=== PATIENT | female | born 1930 | race Caucasian/White ===

== ENCOUNTER 2018-07-26 08:40 | Inpatient (IN) ==
[2018-07-26] MEDS ORDERED: MoRPHine SULFATE 4 MG/ML 1 ML CARP\\VIAL IV STA (09:56)
[2018-07-26] MEDS ORDERED: ONDANSETRON INJ 2 MG/ML 2 ML VIAL IV STA (09:56)
[2018-07-26 10:13] LABS: Basophils # (auto) 0.02 K/uL (0-0.2); Basophils % (auto) 0.2 %; Eosinophils # (auto) 0.06 K/uL (0-0.5); Eosinophils % (auto) 0.7 %; Hematocrit (blood only) 41.7 % (37-47); Immature Granulocytes # (auto) 0.03 K/uL (0.00-0.02); Immature Granulocytes % (auto) 0.3 %; Lymphocytes # (auto) 1.08 K/uL (1.2-3.4); Lymphocytes % (auto) 11.9 %; Mean Corpuscular Hgb Conc 33.6 g/dL (32-36); Mean Corpuscular Volume 93.5 fL (80-100); Mean Platelet Volume 10.3 fL (7.4-10.4); Monocytes # (auto) 0.74 K/uL (0.11-0.59); Monocytes % (auto) 8.1 %; Neutrophils # (auto) 7.18 K/uL (1.4-6.5); Neutrophils % (auto) 78.8 %; Platelet Count 153 K/uL (130-400); RDW Coefficient of Variation 17.4 % (11.5-14.5); RDW Standard Deviation 58.7 fL (36.4-46.3); Red Blood Count 4.46 M/uL (4.2-5.4); White Blood Count 9.11 K/uL (4.8-10.8)
[2018-07-26 10:17] LABS: Appearance Urine Clear (Clear); Bacteria Urine Automated Negative (Negative); Bilirubin Urine Negative (Negative); Blood Urine Negative (Negative); Color Urine Yellow; Glucose Urine UA Negative (Negative); Ketones Urine Negative (Negative); Leukocyte Esterase Urine Negative (Negative); Nitrite Urine Negative (Negative); Protein Urine Trace (Negative); RBC Urine Automated 0-4 /hpf (0-4); Specific Gravity Urine 1.015 (1.000-1.030); Urobilinogen Urine Negative (Negative); WBC Urine Automated 0 /hpf (0-5)
[2018-07-26 10:29] LABS: Albumin Level 3.3 gm/dl (3.4-5.0); BUN Creatinine Ratio 19.1 (10-20); Calcium 8.9 mg/dl (8.5-10.1); Creatinine Clr Calc Pharmacy 25.7 ml/min; Est GFR (African American) 38.1; Est GFR (Non-African American) 32.9; Potassium 4.6 mmol/L (3.5-5.1)
[2018-07-26 10:32] LABS: Prothrombin Time 35.8 Seconds (9.0-12.0)
[2018-07-26 10:45] LABS: Albumin Globulin Ratio 0.9 (0.9-2); Bilirubin,Total 1.5 mg/dl (0.2-1); Globulin 3.8 gm/dl (2.5-4.0); Total Protein 7.1 gm/dl (6.4-8.2); Troponin I 0.082 ng/ml (0-0.045)
[2018-07-26] MEDS ORDERED: DiphenhydrAMINE HCL 50 MG/ML VIAL IV STA (10:58)
[2018-07-26] MEDS ORDERED: IOVERSOL 100ml IV PRN (11:14)
--- NOTE | 2018-07-26 11:22 | CT Scan Report ---
HEAD CT NONCONTRAST CT DOSE: HISTORY: fall TECHNIQUE: Multiaxial CT images of the head were performed without the use of intravenous contrast. A utomated exposure control was utilized for this study. A dose lowering technique was utilized adheri ng to the principles of ALARA. Comparison: None. Findings: The paranasal sinuses and mastoid air cells are clear. The calvarium and skull base are int act. There is no mass, hematoma, midline shift, acute infarct. White matter hypodensity is nonspecifi c but suggestive of microvascular ischemic change. The ventricles and sulci demonstrate mild age-rela elijah involutional changes. Mild posterior scalp swelling with a few skin jeimy. Impression: No acute intracranial abnormality. Atrophy and microvascular ischemic changes. Posterior scalp injury . Electronically signed by: Javier Vail M.D. 07/26/2018 11:21 AM
--- NOTE | 2018-07-26 11:32 | CT Scan Report ---
THORACIC SPINE CT CLINICAL HISTORY: Mid back pain following fall. COMPARISON STUDY: No previous studies for comparison. TECHNIQUE: Axial images of the thoracic spine were obtained. Sagittal and coronal reconstructions wer e viewed. Automated exposure control was utilized for the study. A dose lowering technique was utili zed adhering to the principles of ALARA. FINDINGS: Please note that the chest CT will be reported separately. Note is made of minimal S-shaped curvature of the thoracic spine. No acute thoracic spine fracture is noted. There is severe multilev el disc space narrowing with moderate osteophytosis. There is moderate multilevel facet arthrosis. Th e central canal and neural foramen are suboptimally assessed by CT. Paravertebral soft tissues are un remarkable. Small bilateral pleural effusions and mild interlobular septal thickening are noted. IMPRESSION: 1. No acute thoracic spine fracture or subluxation. 2. Severe multilevel disc space narrowing and moderate osteophytosis and facet arthrosis within the t horacic spine. 3. Small bilateral pleural effusions. Mild interstitial pulmonary edema. Electronically signed by: Wayne Burgess M.D. 07/26/2018 11:30 AM
--- NOTE | 2018-07-26 11:41 | CT Scan Report ---
LUMBAR SPINE CT CT DOSE: HISTORY: lower back pain TECHNIQUE: Multiaxial CT images of the lumbar spine were performed and reformatted in the sagittal an d coronal plane without the use of contrast. A dose lowering technique was utilized adhering to the principles of ALARA. COMPARISON: None. FINDINGS: No fractures. No subluxation. Paraspinal soft tissues are unremarkable. Severe disc space n arrowing throughout the lumbar spine. Mild S-shaped scoliosis. IMPRESSION: No fractures within the lumbar spine. Electronically signed by: Javier Vail M.D. 07/26/2018 11:40 AM
--- NOTE | 2018-07-26 11:55 | CT Scan Report ---
CT SCAN OF THE CHEST WITH IV CONTRAST CLINICAL HISTORY: Fall. COMPARISON STUDY: No priors. TECHNIQUE: Following the IV administration of 93 cc of Optiray 320, CT scan of the thorax was perform ed from the thoracic inlet to the upper abdomen. Images are reviewed in the axial, sagittal, and swati nal planes. IV contrast was administered without complication. A dose lowering technique was utilize d adhering to the principles of ALARA. FINDINGS: Thyroid: Enlarged for age and heterogeneous in attenuation. Thoracic aorta: There is advanced atherosclerotic calcification of the thoracic aorta. There is mild ectasia of the ascending thoracic aorta which measures up to 3.7 cm in diameter. The remainder of the thoracic aorta is normal in caliber and the arch demonstrates standard 3-vessel anatomy. The thoraci c aorta is not well opacified. Pulmonary vasculature: The pulmonary trunk is normal in caliber. There are no filling defects identif ied in the central pulmonary vessels to indicate pulmonary embolus. Note that this examination was no t protocoled for evaluation of the pulmonary arteries. Heart: A 2-lead cardiac pacemaker is present in the left chest wall. The heart is enlarged and withou t pericardial effusion. The coronary arteries are densely calcified. Lungs and pleural spaces: There are small pleural effusions with bibasilar atelectasis. No pneumothor ax is seen. Secretions are noted in the right mainstem bronchus. The trachea is clear. Mediastinum: There is no mediastinal hematoma or lymphadenopathy. Michelle: Clear. Axillae: There is no axillary lymphadenopathy. Upper abdomen: There is a small volume of perihepatic and perisplenic ascites. Partially visualized u pper abdominal viscera is otherwise grossly unremarkable. See report of abdominal CT performed concur rently for detailed intra-abdominal findings. Skeletal structures: The skeletal structures are osteopenic. The bony thorax appears intact. Degenera tive changes noted throughout the thoracic spine and in the shoulders. No lytic or blastic bony lesio ns are seen. IMPRESSION: 1. There is no acute posttraumatic intrathoracic abnormality. 2. Cardiomegaly and small pleural effusions. 3. No pneumothorax is seen. 4. The bony thorax appears intact. 5. A small volume of upper abdominal ascites is noted. 6. Additional findings as above. Electronically signed by: Thiago Gustafson M.D. 07/26/2018 11:54 AM
--- NOTE | 2018-07-26 11:56 | CT Scan Report ---
ABDOMEN AND PELVIS CT WITH IV CONTRAST CT DOSE: HISTORY: severe L flank chest and abd pain TECHNIQUE: Multiaxial CT images of the abdomen and pelvis were performed following the use of intrave nous contrast. A dose lowering technique was utilized adhering to the principles of ALARA. COMPARISON STUDY: None. FINDINGS: Small bilateral pleural effusions. The heart is mildly enlarged. Pacemaker wire is noted. N o hepatic or splenic masses. The adrenal glands are unremarkable. Bilateral cortical renal thinning. Small bilateral renal hypodense lesions. These favor cysts. No hydronephrosis. There is a 6.2 x 5.5 c m heterogeneous mass which appears to be located pancreatic head. The main pancreatic duct proximal t o this lesion is distended up to 1.5 cm. There is diffuse atrophy of the pancreatic body and tail. Th ere are few mildly enlarged peripancreatic lymph nodes measuring up to 1.5 cm consistent with metasta tic disease. There is fluid surrounding the gallbladder. The gallbladder is therefore not well visual ized. This pancreatic mass compresses the adjacent duodenum. However, no evidence for gastric obstruc tion. Mild body wall edema. The bladder, uterus, and bilateral adnexa are unremarkable. Mild presacra l edema. Trace pelvic free fluid. There is also body wall edema. No fractures within the visualized o sseous structures. No bowel wall thickening. Moderate hyperdense stool within the colon suggesting pr ior oral contrast. IMPRESSION: 1. No acute traumatic process within the abdomen or pelvis. 2. A 6.2 x 5.5 cm heterogeneous mass within the pancreatic head with adjacent peripancreatic lymphade nopathy. This likely represents a pancreatic adenocarcinoma. 3. There is fluid surrounding the gallbladder. Therefore, the gallbladder is not well visualized. 4. Body wall edema. 5. Trace pelvic free fluid. 6. Small bilateral pleural effusions. Electronically signed by: Javier Vail M.D. 07/26/2018 11:54 AM
[2018-07-26 12:21] LABS: INR 3.8 (0.9-1.1)
--- NOTE | 2018-07-26 14:12 | Gastrointestinal Consultation ---
Date of Consultation July 26, 2018 Assessment & Plan (1) Pancreatic mass: 87 year old female with newly discovered pancreatic mass w/ normal LFTs (lipase yet to be obtained). After discussion with pt and daughter, they are unsure of how aggressive they wish to be in regards to diagnosis due to age and chromic comorbidities. MRI imaging, EUS w/ FNA was discussed. Possible treatment options if malignancy was confirmed were discussed as well. All questions answered. She is being admitted for pain control, further work up of her presenting concerns. They were asked to discuss with family friends in regards to pursuing EUS w/ FNA. They note they will reach out to primary service once a decision is made. Per patient current wishes, I will not EGD/EUS at this time. Will sign off for now. Thank you for allowing us to participate in the care of this patient. Please call with any acute changes, questions or concerns. Please see addendum below with additional recommendation from my supervising physician. Supervising Physician Co-Signing Physician Notes I have seen and examined the patient with BEV May on 07/26. Her note reflects our findings and plan. History of Present Illness Reason for Consultation: panc mass Requesting Physician: Nidhi Gonzalez Attending Physician: Nidhi Gonzalez History of Present Illness 87 year old female with history of T2DM, hyperthyroidism, dyslipidemia, pylmonary HTN, CHF, mitral valve regurgitation, afib on coumadin, cardiac pacer, recent fall w/ workup concerning for a pancreatic CA who presented through the ED today for back pain. GI asked to evaluate for pancreatic mass. Daughter at bedside. Notes decreased appetite over the past few months. No nausea, vomiting. Has been having a lot of burping/belching. She denies weight loss but daughter notes graduate weight loss. Denies any abd pain. No change in bowel habits specifically no black/bloody stools. CT: No acute traumatic process within the abdomen or pelvis.. A 6.2 x 5.5 cm heterogeneous mass within the pancreatic head with adjacent peripancreatic lymphadenopathy. This likely represents a pancreatic adenocarcinoma.. There is fluid surrounding the gallbladder. Therefore, the gallbladder is not well visualized. Body wall edema.. Trace pelvic free fluid. Small bilateral pleural effusions. Allergies Allergy/AdvReac Type Severity Reaction Status Date / Time morphine Allergy Intermediate Redness of Verified 07/26/18 12:43 Skin Home Medications Home Medications Medication Instructions Recorded Confirmed Type albuterol sulfate [Ventolin HFA] 2 inh INHALATION Q4 PRN 07/26/18 07/26/18 History atorvastatin 10 mg PO DAILY 07/26/18 07/26/18 History carvedilol 3.125 mg PO BID 07/26/18 07/26/18 History cholecalciferol (vitamin D3) 5,000 unit PO DAILY 07/26/18 07/26/18 History [Vitamin D3] furosemide 40 mg PO DAILY 07/26/18 07/26/18 History magnesium hydroxide [Milk of 30 ml PO DAILY PRN 07/26/18 07/26/18 History Magnesia] magnesium oxide 400 mg PO DAILY 07/26/18 07/26/18 History nitroglycerin [Nitrostat] 0.4 mg SUBLINGUAL UD PRN 07/26/18 07/26/18 History pantoprazole 20 mg PO DAILY 07/26/18 07/26/18 History propylthiouracil 50 mg PO DAILY 07/26/18 07/26/18 History warfarin 4 mg PO DAILY 07/26/18 07/26/18 History acetaminophen [Tylenol Extra 1,000 mg PO Q8H #100 tab 07/31/18 Rx Strength] calcium carbonate [Calcium 500] 500 mg PO BID #60 tab 07/31/18 Rx lidocaine 1 patch TRANSDERMAL QAM #3 ea 07/31/18 Rx oxycodone 5 mg PO BID PRN #4 cap 07/31/18 Rx polyethylene glycol 3350 [Miralax] 17 g PO DAILY #30 ea 07/31/18 Rx sennosides-docusate sodium 2 tab PO BID #60 tab 07/31/18 Rx [Senokot-S] tramadol 50 mg PO Q4H PRN #8 tab 07/31/18 Rx Patient History Medical History GERD (gastroesophageal reflux disease) (Chronic) Tachy-miranda syndrome (Chronic) Nonischemic cardiomyopathy (Chronic) Pulmonary hypertension (Chronic) Dyslipidemia (Chronic) Hyperthyroidism (Chronic) DM type 2 (diabetes mellitus, type 2) (Chronic) A-fib (Chronic) Surgical History H/O inguinal hernia repair (Chronic) History of cataract surgery (Chronic) History of carpal tunnel surgery of right wrist (Chronic) History of carpal tunnel surgery of left wrist (Chronic) History of permanent cardiac pacemaker placement (Chronic) Family History Father Stroke Brother Stroke Social History Preferred Language: [place] Communication Ability: Effective Branch Mechanic Required: No Beliefs That Will Affect Care: None Current Living Situation: Alone Other Information That Helps Us Care for You: No Feels Safe at Home: Yes Safety Concerns: Feels Safe At This Time Smoking Status: Never smoker Do You Dip or Chew Tobacco: No Hx Alcohol Use: No Hx Substance Use: No Review of Systems Constitutional: + fatigue, + weakness, + anorexia and + weight loss; no fever and no body aches Respiratory: no cough, no dyspnea and no wheezing Cardiovascular: no chest pain, no radiating jaw, neck or arm pain and no dyspnea on exertion Gastrointestinal: + belching and + early satiety; no abdominal pain, no heartburn, no nausea, no vomiting, no coffee ground emesis, no hematemesis, no pain with swallowing, no dysphagia, no cramping, no change in bowel habits, no change in stools, no diarrhea/loose stools, no blood in stools and no melena Physical Exam Constitutional: well nourished; no acute distress and not ill appearing Eyes: Right pupil is chronically dilated per daughter Respiratory: normal respiratory effort; no respiratory distress Cardiovascular: Rate/Rhythm: regular rate and regular rhythm Gastrointestinal (Abdomen): Percussion/Palpation: abdomen soft; abdomen nontender, no guarding, abdomen not rigid, no hepatomegaly and no ascites Results & Data Vital Signs (Past 12 Hours) Vital Signs Temp Pulse Pulse Resp BP BP Pulse Ox 07/26/18 12:21 66 18 119/80 100 07/26/18 11:38 88 L 07/26/18 10:35 61 18 130/71 95 07/26/18 08:35 36.4 C L 64 18 122/76 96 Laboratory Results 07/26/18 07/26/18 07/26/18 Range/Units 10:03 10:03 10:03 WBC (4.8-10.8) K/uL RBC (4.2-5.4) M/uL Hgb (12.0-16.0) g/dL Hct (37-47) % MCV (80-100) fL MCH (25-34) pg MCHC (32-36) g/dL RDW Std Deviation (36.4-46.3) fL RDW Coeff of Melita (11.5-14.5) % Plt Count (130-400) K/uL MPV (7.4-10.4) fL Immature Gran % (Auto) % Neut % (Auto) % Lymph % (Auto) % [place] % (Auto) % Eos % (Auto) % Baso % (Auto) % Immature Gran # (Auto) (0.00-0.02) K/uL Neut # (Auto) (1.4-6.5) K/uL Lymph # (Auto) (1.2-3.4) K/uL [place] # (Auto) (0.11-0.59) K/uL Eos # (Auto) (0-0.5) K/uL Baso # (Auto) (0-0.2) K/uL PT (9.0-12.0) Seconds INR (0.9-1.1) Sodium 130 L (136-145) mmol/L Potassium 4.6 (3.5-5.1) mmol/L Chloride 96 L (98-107) mmol/L Carbon Dioxide 29 (21-32) mmol/L Anion Gap 5.0 (3-11) BUN 27 H (7-18) mg/dl Creatinine 1.42 H (0.6-1.2) mg/dl Est Cr Clr Drug Dosing 25.7 ml/min Est GFR ( Amer) 38.1 Est GFR (Non-Af Amer) 32.9 BUN/Creatinine Ratio 19.1 (10-20) Glucose 141 H (70-99) mg/dl Calcium 8.9 (8.5-10.1) mg/dl Total Bilirubin 1.5 H (0.2-1) mg/dl AST 29 (15-37) U/L ALT 19 (12-78) U/L Alkaline Phosphatase 110 (45-117) U/L Total Creatine Kinase 111 (26-192) U/L Troponin I 0.082 H* (0-0.045) ng/ml Total Protein 7.1 (6.4-8.2) gm/dl Albumin 3.3 L (3.4-5.0) gm/dl Globulin 3.8 (2.5-4.0) gm/dl Albumin/Globulin Ratio 0.9 (0.9-2) Urine Color Yellow Urine Appearance Clear (Clear) Urine pH 6.0 (4.5-7.5) Ur Specific [place] 1.015 (1.000-1.030) Urine Protein Trace H (Negative) Urine Glucose (UA) Negative (Negative) Urine Ketones Negative (Negative) Urine Blood Negative (Negative) Urine Nitrite Negative (Negative) Urine Bilirubin Negative (Negative) Urine Urobilinogen Negative (Negative) Ur Leukocyte Esterase Negative (Negative) Urine WBC (Auto) 0 (0-5) /hpf Urine RBC (Auto) 0-4 (0-4) /hpf U Hyaline Cast (Auto) 1-5 (0-5) /lpf U Epithel Cells (Auto) 10-20 H (0-5) /lpf Urine Bacteria (Auto) Negative (Negative) 07/26/18 07/26/18 Range/Units 10:03 10:03 WBC 9.11 (4.8-10.8) K/uL RBC 4.46 (4.2-5.4) M/uL Hgb 14.0 (12.0-16.0) g/dL Hct 41.7 (37-47) % MCV 93.5 (80-100) fL MCH 31.4 (25-34) pg MCHC 33.6 (32-36) g/dL RDW Std Deviation 58.7 H (36.4-46.3) fL RDW Coeff of Melita 17.4 H (11.5-14.5) % Plt Count 153 (130-400) K/uL MPV 10.3 (7.4-10.4) fL Immature Gran % (Auto) 0.3 % Neut % (Auto) 78.8 % Lymph % (Auto) 11.9 % [place] % (Auto) 8.1 % Eos % (Auto) 0.7 % Baso % (Auto) 0.2 % Immature Gran # (Auto) 0.03 H (0.00-0.02) K/uL Neut # (Auto) 7.18 H (1.4-6.5) K/uL Lymph # (Auto) 1.08 L (1.2-3.4) K/uL [place] # (Auto) 0.74 H (0.11-0.59) K/uL Eos # (Auto) 0.06 (0-0.5) K/uL Baso # (Auto) 0.02 (0-0.2) K/uL PT 35.8 H (9.0-12.0) Seconds INR 3.8 H (0.9-1.1) Sodium (136-145) mmol/L Potassium (3.5-5.1) mmol/L Chloride (98-107) mmol/L Carbon Dioxide (21-32) mmol/L Anion Gap (3-11) BUN (7-18) mg/dl Creatinine (0.6-1.2) mg/dl Est Cr Clr Drug Dosing ml/min Est GFR ( Amer) Est GFR (Non-Af Amer) BUN/Creatinine Ratio (10-20) Glucose (70-99) mg/dl Calcium (8.5-10.1) mg/dl Total Bilirubin (0.2-1) mg/dl AST (15-37) U/L ALT (12-78) U/L Alkaline Phosphatase (45-117) U/L Total Creatine Kinase (26-192) U/L Troponin I (0-0.045) ng/ml Total Protein (6.4-8.2) gm/dl Albumin (3.4-5.0) gm/dl Globulin (2.5-4.0) gm/dl Albumin/Globulin Ratio (0.9-2) Urine Color Urine Appearance (Clear) Urine pH (4.5-7.5) Ur Specific [place] (1.000-1.030) Urine Protein (Negative) Urine Glucose (UA) (Negative) Urine Ketones (Negative) Urine Blood (Negative) Urine Nitrite (Negative) Urine Bilirubin (Negative) Urine Urobilinogen (Negative) Ur Leukocyte Esterase (Negative) Urine WBC (Auto) (0-5) /hpf Urine RBC (Auto) (0-4) /hpf U Hyaline Cast (Auto) (0-5) /lpf U Epithel Cells (Auto) (0-5) /lpf Urine Bacteria (Auto) (Negative)
--- NOTE | 2018-07-26 14:23 | Emergency Department Note ---
Entered by Ambar Weeks acting as a scribe for Pino Monreal DO History of Present Illness General Chief complaint: Fall Time Seen by Provider: 07/26/18 08:42 Source: patient and family Mode of arrival: EMS Limitations: no limitations History of Present Illness Provider complaint: fall Onset (ago): hour(s) 3 Location: back Pain Consistency: + other (episode) Quality: + other (fall) Associated symptoms: + denies other symptoms; no syncope The patient is an 87 year old female who presents to the ER via EMS from home following a fall that occurred last night. The patient reports that she was standing and all of a sudden was on the floor. She denies losing consciousness or inuring her head during this episode. She explains she fell on her left side and that she does have back pain. The daughter at bedside states that the patient is on Coumadin for her history of a-fib. The patient denies any numbness or weakness in her arms or legs. Per daughter, the patient last had a fall 6 days ago. Home Medications Home Medications Medication Instructions Recorded Confirmed Type acetaminophen [Tylenol] 650 mg PO DAILY PRN 07/26/18 07/26/18 History albuterol sulfate [Ventolin HFA] 2 inh INHALATION Q4 PRN 07/26/18 07/26/18 History alendronate 70 mg PO WK 07/26/18 07/26/18 History atorvastatin 10 mg PO DAILY 07/26/18 07/26/18 History carvedilol 3.125 mg PO BID 07/26/18 07/26/18 History cholecalciferol (vitamin D3) 5,000 unit PO DAILY 07/26/18 07/26/18 History [Vitamin D3] furosemide 40 mg PO DAILY 07/26/18 07/26/18 History hydrocodone-acetaminophen 0.5 tab PO Q6H PRN 07/26/18 07/26/18 History magnesium hydroxide [Milk of 30 ml PO DAILY PRN 07/26/18 07/26/18 History Magnesia] magnesium oxide 400 mg PO DAILY 07/26/18 07/26/18 History nitroglycerin [Nitrostat] 0.4 mg SUBLINGUAL UD PRN 07/26/18 07/26/18 History pantoprazole 20 mg PO DAILY 07/26/18 07/26/18 History propylthiouracil 50 mg PO DAILY 07/26/18 07/26/18 History warfarin 4 mg PO DAILY 07/26/18 07/26/18 History Allergies Allergy/AdvReac Type Severity Reaction Status Date / Time morphine Allergy Intermediate Redness of Verified 07/26/18 12:43 Skin Past Med/Surg History Medical History A-fib (Chronic) Surgical History History of permanent cardiac pacemaker placement Social History Preferred Language: Slovenian Current Living Situation: Alone Smoking Status: Never smoker Review of Systems See HPI for pertinent positives & negatives. and A total of 10 systems reviewed and were otherwise negative Physical Exam Vital Signs Vital Signs - 24 hr 07/26/18 08:35 07/26/18 10:35 07/26/18 11:38 Temperature 36.4 C L Temperature Source Axillary Sepsis Recent Fever Within 48 Hours No Sepsis Action Taken by Nursing No Action Required Pulse Rate 64 Pulse Rate [Apical] 61 Respiratory Rate 18 18 Respiratory Effort / Characteristics Non-Labored Spontaneous Non-Labored Spontaneous Respiratory Depth Normal Normal Respiratory Pattern Regular Regular Blood Pressure 122/76 Blood Pressure [Right Arm] 130/71 Blood Pressure Mean 91 Blood Pressure Mean [Right Arm] 90 Blood Pressure Position Sitting Blood Pressure Position [Right Arm] Lying Pulse Oximetry 96 95 88 L Oxygen Delivery Method Room Air Room Air Room Air Nasal Cannula Oxygen Flow Rate 0 07/26/18 12:21 Temperature Temperature Source Sepsis Recent Fever Within 48 Hours Sepsis Action Taken by Nursing Pulse Rate Pulse Rate [Apical] 66 Respiratory Rate 18 Respiratory Effort / Characteristics Non-Labored Spontaneous Respiratory Depth Normal Respiratory Pattern Regular Blood Pressure Blood Pressure [Right Arm] 119/80 Blood Pressure Mean Blood Pressure Mean [Right Arm] 93 Blood Pressure Position Blood Pressure Position [Right Arm] Lying Pulse Oximetry 100 Oxygen Delivery Method Nasal Cannula Oxygen Flow Rate 2 GENERAL: alert, well appearing, well nourished, no distress, non-toxic HEAD: Stables in posterior occiput. Normal cephalic, atraumatic. EYE EXAM: normal conjunctiva, PERRL and EOM's grossly intact OROPHARYNX: no exudate, no erythema, lips, buccal mucosa, and tongue normal and mucous membranes are moist EARS: TMs clear b/l NECK: supple, no nuchal rigidity, no adenopathy, non-tender CHEST: stable to compression anteriorly and posteriorly LUNGS: clear to auscultation. Normal chest wall mechanics HEART: no murmurs, S1 normal and S2 normal ABDOMEN: abdomen soft, non-tender, normo-active bowel sounds, no masses, no rebound or guarding. PELVIS: stable to compression anteriorly and posteriorly BACK: Back is symmetrical on inspection and there is no deformity. Tenderness throughout upper lumbar midline and paraspinal tracking through left flank with bruising. UPPER EXTREMITIES: full active and passive range of motion of all joints without tenderness to palpation LOWER EXTREMITIES: full active and passive range of motion of all joints without tenderness to palpation NEURO EXAM: Normal sensorium, cranial nerves II-XII grossly intact, normal speech, no gross weakness of arms, no gross weakness of legs. GCS: 15. Course ED COURSE: Vital signs were reviewed and are within normal limits. The patients medical record was reviewed The above diagnostic studies were performed and reviewed. ED treatments and interventions as stated above. 0850: The patient was evaluated in room A3. A complete history and physical examination was performed. 1212: I reviewed the patient's case with Dr. [facility] Hospitalist. He will evaluate the patient for further management. 1220: Upon reevaluation, the patient is [].I discussed my findings with the [patient] and [] understands and agrees with the treatment plan. Based on the patients age, coexisting illnesses, exam and lab findings the decision to treat as an [inpatient][outpatient] was made. The patient remained stable while under my care. [The patient appeared well at the time of discharge.] [The patient will be evaluated for further management.] Administered Medications Ioversol (Optiray 320 100ml) 93 ml IV ONCE PRN PRN Reason: Interaction Checking Stop: 07/30/18 11:13 Last Admin: 07/26/18 11:15 Dose: 93 ml Documented by: [id number] Discontinued Medications Diphenhydramine HCl (Benadryl) 25 mg IV NOW STA Stop: 07/26/18 10:59 Last Admin: 07/26/18 11:30 Dose: 25 mg Documented by: [id number] Morphine Sulfate (Morphine Sulfate) 3 mg IV NOW STA Stop: 07/26/18 09:57 Last Admin: 07/26/18 10:34 Dose: 3 mg Documented by: [id number] Ondansetron HCl (Zofran) 4 mg IV NOW STA Stop: 07/26/18 09:57 Last Admin: 07/26/18 10:34 Dose: 4 mg Documented by: [id number] Medical Decision Making Differential Diagnosis Differential diagnoses include major intracranial, cervical, spinal, thoracic, abdominal, pelvic and neurologic injury. Fracture, contusion, sprain, strain, laceration, abrasions included as well. Home Medications Current Medication List: was personally reviewed by me Laboratory Data Attestation: I reviewed the patient's lab results. Result diagrams: 07/26/18 10:03 07/26/18 10:03 Lab Results 07/26/18 07/26/18 07/26/18 Range/Units 10:03 10:03 10:03 WBC 9.11 (4.8-10.8) K/uL RBC 4.46 (4.2-5.4) M/uL Hgb 14.0 (12.0-16.0) g/dL Hct 41.7 (37-47) % MCV 93.5 (80-100) fL MCH 31.4 (25-34) pg MCHC 33.6 (32-36) g/dL RDW Std Deviation 58.7 H (36.4-46.3) fL RDW Coeff of Melita 17.4 H (11.5-14.5) % Plt Count 153 (130-400) K/uL MPV 10.3 (7.4-10.4) fL Immature Gran % (Auto) 0.3 % Neut % (Auto) 78.8 % Lymph % (Auto) 11.9 % Duchesne % (Auto) 8.1 % Eos % (Auto) 0.7 % Baso % (Auto) 0.2 % Immature Gran # (Auto) 0.03 H (0.00-0.02) K/uL Neut # (Auto) 7.18 H (1.4-6.5) K/uL Lymph # (Auto) 1.08 L (1.2-3.4) K/uL Duchesne # (Auto) 0.74 H (0.11-0.59) K/uL Eos # (Auto) 0.06 (0-0.5) K/uL Baso # (Auto) 0.02 (0-0.2) K/uL PT 35.8 H (9.0-12.0) Seconds INR 3.8 H (0.9-1.1) Sodium 130 L (136-145) mmol/L Potassium 4.6 (3.5-5.1) mmol/L Chloride 96 L (98-107) mmol/L Carbon Dioxide 29 (21-32) mmol/L Anion Gap 5.0 (3-11) BUN 27 H (7-18) mg/dl Creatinine 1.42 H (0.6-1.2) mg/dl Est Cr Clr Drug Dosing 25.7 ml/min Est GFR ( Amer) 38.1 Est GFR (Non-Af Amer) 32.9 BUN/Creatinine Ratio 19.1 (10-20) Glucose 141 H (70-99) mg/dl Calcium 8.9 (8.5-10.1) mg/dl Total Bilirubin 1.5 H (0.2-1) mg/dl AST 29 (15-37) U/L ALT 19 (12-78) U/L Alkaline Phosphatase 110 (45-117) U/L Total Creatine Kinase (26-192) U/L Troponin I 0.082 H* (0-0.045) ng/ml Total Protein 7.1 (6.4-8.2) gm/dl Albumin 3.3 L (3.4-5.0) gm/dl Globulin 3.8 (2.5-4.0) gm/dl Albumin/Globulin Ratio 0.9 (0.9-2) Urine Color Urine Appearance (Clear) Urine pH (4.5-7.5) Ur Specific Kathleen (1.000-1.030) Urine Protein (Negative) Urine Glucose (UA) (Negative) Urine Ketones (Negative) Urine Blood (Negative) Urine Nitrite (Negative) Urine Bilirubin (Negative) Urine Urobilinogen (Negative) Ur Leukocyte Esterase (Negative) Urine WBC (Auto) (0-5) /hpf Urine RBC (Auto) (0-4) /hpf U Hyaline Cast (Auto) (0-5) /lpf U Epithel Cells (Auto) (0-5) /lpf Urine Bacteria (Auto) (Negative) 07/26/18 07/26/18 Range/Units 10:03 10:03 WBC (4.8-10.8) K/uL RBC (4.2-5.4) M/uL Hgb (12.0-16.0) g/dL Hct (37-47) % MCV (80-100) fL MCH (25-34) pg MCHC (32-36) g/dL RDW Std Deviation (36.4-46.3) fL RDW Coeff of Melita (11.5-14.5) % Plt Count (130-400) K/uL MPV (7.4-10.4) fL Immature Gran % (Auto) % Neut % (Auto) % Lymph % (Auto) % Duchesne % (Auto) % Eos % (Auto) % Baso % (Auto) % Immature Gran # (Auto) (0.00-0.02) K/uL Neut # (Auto) (1.4-6.5) K/uL Lymph # (Auto) (1.2-3.4) K/uL Duchesne # (Auto) (0.11-0.59) K/uL Eos # (Auto) (0-0.5) K/uL Baso # (Auto) (0-0.2) K/uL PT (9.0-12.0) Seconds INR (0.9-1.1) Sodium (136-145) mmol/L Potassium (3.5-5.1) mmol/L Chloride (98-107) mmol/L Carbon Dioxide (21-32) mmol/L Anion Gap (3-11) BUN (7-18) mg/dl Creatinine (0.6-1.2) mg/dl Est Cr Clr Drug Dosing ml/min Est GFR ( Amer) Est GFR (Non-Af Amer) BUN/Creatinine Ratio (10-20) Glucose (70-99) mg/dl Calcium (8.5-10.1) mg/dl Total Bilirubin (0.2-1) mg/dl AST (15-37) U/L ALT (12-78) U/L Alkaline Phosphatase (45-117) U/L Total Creatine Kinase 111 (26-192) U/L Troponin I (0-0.045) ng/ml Total Protein (6.4-8.2) gm/dl Albumin (3.4-5.0) gm/dl Globulin (2.5-4.0) gm/dl Albumin/Globulin Ratio (0.9-2) Urine Color Yellow Urine Appearance Clear (Clear) Urine pH 6.0 (4.5-7.5) Ur Specific Kathleen 1.015 (1.000-1.030) Urine Protein Trace H (Negative) Urine Glucose (UA) Negative (Negative) Urine Ketones Negative (Negative) Urine Blood Negative (Negative) Urine Nitrite Negative (Negative) Urine Bilirubin Negative (Negative) Urine Urobilinogen Negative (Negative) Ur Leukocyte Esterase Negative (Negative) Urine WBC (Auto) 0 (0-5) /hpf Urine RBC (Auto) 0-4 (0-4) /hpf U Hyaline Cast (Auto) 1-5 (0-5) /lpf U Epithel Cells (Auto) 10-20 H (0-5) /lpf Urine Bacteria (Auto) Negative (Negative) Imaging Data Radiologist's Impression: Radiology results as stated below per my review and the radiologist's interpretation: ABDOMEN AND PELVIS CT WITH IV CONTRAST CT DOSE: HISTORY: severe L flank chest and abd pain TECHNIQUE: Multiaxial CT images of the abdomen and pelvis were performed following the use of intravenous contrast. A dose lowering technique was utilized adhering to the principles of ALARA. COMPARISON STUDY: None. FINDINGS: Small bilateral pleural effusions. The heart is mildly enlarged. Pacemaker wire is noted. No hepatic or splenic masses. The adrenal glands are unremarkable. Bilateral cortical renal thinning. Small bilateral renal hypodense lesions. These favor cysts. No hydronephrosis. There is a 6.2 x 5.5 cm heterogeneous mass which appears to be located pancreatic head. The main pancreatic duct proximal to this lesion is distended up to 1.5 cm. There is diffuse atrophy of the pancreatic body and tail. There are few mildly enlarged peripancreatic lymph nodes measuring up to 1.5 cm consistent with metastatic disease. There is fluid surrounding the gallbladder. The gallbladder is therefore not well visualized. This pancreatic mass compresses the adjacent duodenum. However, no evidence for gastric obstruction. Mild body wall edema. The bladder, uterus, and bilateral adnexa are unremarkable. Mild presacral edema. Trace pelvic free fluid. There is also body wall edema. No fractures within the visualized osseous structures. No bowel wall thickening. Moderate hyperdense stool within the colon suggesting prior oral contrast. IMPRESSION: 1. No acute traumatic process within the abdomen or pelvis. 2. A 6.2 x 5.5 cm heterogeneous mass within the pancreatic head with adjacent peripancreatic lymphadenopathy. This likely represents a pancreatic adenocarcinoma. 3. There is fluid surrounding the gallbladder. Therefore, the gallbladder is not well visualized. 4. Body wall edema. 5. Trace pelvic free fluid. 6. Small bilateral pleural effusions. Electronically signed by: Javier Vail M.D. 07/26/2018 11:[address] SCAN OF THE CHEST WITH IV CONTRAST CLINICAL HISTORY: Fall. COMPARISON STUDY: No priors. TECHNIQUE: Following the IV administration of 93 cc of Optiray 320, CT scan of the thorax was performed from the thoracic inlet to the upper abdomen. Images are reviewed in the axial, sagittal, and coronal planes. IV contrast was administered without complication. A dose lowering technique was utilized adhering to the principles of ALARA. FINDINGS: Thyroid: Enlarged for age and heterogeneous in attenuation. Thoracic aorta: There is advanced atherosclerotic calcification of the thoracic aorta. There is mild ectasia of the ascending thoracic aorta which measures up to 3.7 cm in diameter. The remainder of the thoracic aorta is normal in caliber and the arch demonstrates standard 3-vessel anatomy. The thoracic aorta is not well opacified. Pulmonary vasculature: The pulmonary trunk is normal in caliber. There are no filling defects identified in the central pulmonary vessels to indicate pulmonary embolus. Note that this examination was not protocoled for evaluation of the pulmonary arteries. Heart: A 2-lead cardiac pacemaker is present in the left chest wall. The heart is enlarged and without pericardial effusion. The coronary arteries are densely calcified. Lungs and pleural spaces: There are small pleural effusions with bibasilar atelectasis. No pneumothorax is seen. Secretions are noted in the right mainstem bronchus. The trachea is clear. Mediastinum: There is no mediastinal hematoma or lymphadenopathy. Michelle: Clear. Axillae: There is no axillary lymphadenopathy. Upper abdomen: There is a small volume of perihepatic and perisplenic ascites. Partially visualized upper abdominal viscera is otherwise grossly unremarkable. See report of abdominal CT performed concurrently for detailed intra-abdominal findings. Skeletal structures: The skeletal structures are osteopenic. The bony thorax appears intact. Degenerative changes noted throughout the thoracic spine and in the shoulders. No lytic or blastic bony lesions are seen. IMPRESSION: 1. There is no acute posttraumatic intrathoracic abnormality. 2. Cardiomegaly and small pleural effusions. 3. No pneumothorax is seen. 4. The bony thorax appears intact. 5. A small volume of upper abdominal ascites is noted. 6. Additional findings as above. Electronically signed by: Thiago Gustafson M.D. 07/26/2018 11:[address]AST CT DOSE: HISTORY: fall TECHNIQUE: Multiaxial CT images of the head were performed without the use of intravenous contrast. Automated exposure control was utilized for this study. A dose lowering technique was utilized adhering to the principles of ALARA. Comparison: None. Findings: The paranasal sinuses and mastoid air cells are clear. The calvarium and skull base are intact. There is no mass, hematoma, midline shift, acute infarct. White matter hypodensity is nonspecific but suggestive of microvascular ischemic change. The ventricles and sulci demonstrate mild age-related involutional changes. Mild posterior scalp swelling with a few skin jeimy. Impression: No acute intracranial abnormality. Atrophy and microvascular ischemic changes. Posterior scalp injury. Electronically signed by: Javier Vail M.D. 07/26/2018 11:[address] DOSE: HISTORY: lower back pain TECHNIQUE: Multiaxial CT images of the lumbar spine were performed and reformatted in the sagittal and coronal plane without the use of contrast. A dose lowering technique was utilized adhering to the principles of ALARA. COMPARISON: None. FINDINGS: No fractures. No subluxation. Paraspinal soft tissues are unremarkable. Severe disc space narrowing throughout the lumbar spine. Mild S- shaped scoliosis. IMPRESSION: No fractures within the lumbar spine. Electronically signed by: Javier Vail M.D. 07/26/2018 11:[address] CLINICAL HISTORY: Mid back pain following fall. COMPARISON STUDY: No previous studies for comparison. TECHNIQUE: Axial images of the thoracic spine were obtained. Sagittal and coronal reconstructions were viewed. Automated exposure control was utilized for the study. A dose lowering technique was utilized adhering to the principles of ALARA. FINDINGS: Please note that the chest CT will be reported separately. Note is made of minimal S-shaped curvature of the thoracic spine. No acute thoracic spine fracture is noted. There is severe multilevel disc space narrowing with moderate osteophytosis. There is moderate multilevel facet arthrosis. The central canal and neural foramen are suboptimally assessed by CT. Paravertebral soft tissues are unremarkable. Small bilateral pleural effusions and mild interlobular septal thickening are noted. IMPRESSION: 1. No acute thoracic spine fracture or subluxation. 2. Severe multilevel disc space narrowing and moderate osteophytosis and facet arthrosis within the thoracic spine. 3. Small bilateral pleural effusions. Mild interstitial pulmonary edema. Electronically signed by: Wayne Burgess M.D. 07/26/2018 11:30 AM ECG Data Attestation: I personally reviewed and interpreted this ECG as follows: Indication: other (trauma) Rate (beats per minute): 70 Rhythm: atrial fibrillation Findings: + other (normal axis), + ST depression (Inferior) and + T-wave inversion (Inferior); no PVC Comparison ECG Date: no prior available Blood Pressure Blood Pressure Findings: Normal blood pressure Blood Pressure Disposition: did not require urgent referral MDM Narrative Patient is an 79-year-old female who presents the ER following a mechanical fall. Patient fell around 6 AM is complaining of left back and flank pain. Patient notes that she has fallen multiple times recently. Labs were obtained showed no significant leukocytosis or anemia. INR was supratherapeutic at 3.8. BMP with mild hyponatremia. Creatinine was 1.4. No significant transaminitis. Troponin was elevated at 0.082. Do question if this is demand ischemia versus arrhythmia as she is had no chest pain. UA was unremarkable. CT of the thoracic lumbar head chest was unremarkable. CT abdomen shows a likely pancreatic cancer. Patient was updated in regards to these findings. Discussed with hospitalist. EKG was nondiagnostic. Discussed with the hospitalist for further observation. Impression & Plan Fall, Elevated troponin, Back contusion, Pancreatic cancer Discharge Plan Visit Data Chief Complaint: Fall ED Provider: Pino Monreal Discharge Problem: Fall, Elevated troponin, Back contusion, Pancreatic cancer Patient Disposition: Being Evaluated by Hospitalist Forms Stand Alone Forms: My [facility] Prescriptions Prescriptions: No Action furosemide 40 mg tablet 40 mg PO DAILY RF: 0 acetaminophen [Tylenol] 325 mg Tablet 650 mg PO DAILY PRN (Reason: Pain) RF: 0 propylthiouracil 50 mg tablet 50 mg PO DAILY RF: 0 atorvastatin 10 mg tablet 10 mg PO DAILY RF: 0 hydrocodone-acetaminophen 5-325 mg tablet 0.5 tab PO Q6H PRN (Reason: Pain, Severe) RF: 0 alendronate 70 mg tablet 70 mg PO WK RF: 0 carvedilol 3.125 mg tablet 3.125 mg PO BID RF: 0 warfarin 4 mg tablet 4 mg PO DAILY RF: 0 pantoprazole 20 mg tablet,delayed release (DR/EC) 20 mg PO DAILY RF: 0 magnesium hydroxide [Milk of Magnesia] 400 mg/5 mL Suspension 30 ml PO DAILY PRN (Reason: Constipation) RF: 0 nitroglycerin [Nitrostat] 0.4 mg Tablet, Sublingual 0.4 mg sublingual UD PRN (Reason: Chest Pain) RF: 0 albuterol sulfate [Ventolin HFA] 90 mcg/actuation HFA aerosol inhaler 2 inh inhalation Q4 PRN (Reason: Shortness Of Breath) RF: 0 cholecalciferol (vitamin D3) [Vitamin D3] 5,000 unit Tablet 5,000 unit PO DAILY RF: 0 magnesium oxide 400 mg magnesium Capsule 400 mg PO DAILY RF: 0 Referrals Referrals: Dara Hays DO [Primary Care Provider] - Discharge Problem: Fall Qualifiers: Encounter type: initial encounter Qualified Code(s): W19.XXXA - Unspecified fall, initial encounter Back contusion Qualifiers: Encounter type: initial encounter Laterality: unspecified laterality Qualified Code(s): S20.229A - Contusion of unspecified back wall of thorax, initial encounter Pancreatic cancer Qualifiers: Pancreatic malignancy location: unspecified Qualified Code(s): C25.9 - Malignant neoplasm of pancreas, unspecified The scribe's documentation has been prepared under my direction and personally reviewed by me in its entirety. I confirm that the note above accurately reflects all work, treatment, procedures, and medical decision making performed by me.
--- NOTE | 2018-07-26 14:55 | History & Physical Report ---
Date of Service July 26, 2018 Assessment & Plan (1) Fall: (2) Back pain: -Admit to [facility] with telemetry -Patient presenting from home with back pain after suffering a fall last evening -Fall appears to be mechanical in nature -No acute fractures noted on imaging -Pain control with [id number] Tylenol, PRN oxycodone and IV morphine for breakthrough pain -PT/OT evaluations (3) Pancreatic mass: -CT ABD/pelvis showing a 6.2 x 5.5 cm heterogeneous mass within the pancreatic head, likely representing a pancreatic adenocarcinoma -Had discussion with patient and daughter regarding goals of care and they are unsure how aggressive they would like to be at this point -GI consult for further input, case discussed with BEV Guzmán (4) Elevated troponin: -Mild elevation at 0.082 -no chest pain, EKG demonstrates T wave inversions in the inferior leads, unchanged from outpatient EKGs -Likely secondary to stress of fall/prolonged period of time on the floor -Noted normal CK -Continue to cycle cardiac enzymes, consider resting echo or cardiology evaluation if significant elevation (5) Hypoxia: -Mild hypoxia noted in the ED at 88% on room air, improved with 2 L of oxygen via nasal cannula -Likely secondary to IV pain medications received in the ER -Continue to monitor, wean O2 as able (6) Hyponatremia: -Mild, Na+ 130 -Likely secondary to poor p.o. 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 Recently, patient has had 2 visits to [facility] ED, one for a fall in which she had a laceration to her head which required jeimy and another for right upper quadrant pain. A right upper quadrant ultrasound was obtained that demonstrated a mass. Outpatient CT scan obtained yesterday showed pancreatic mass. Last evening, patient reports she was standing in her kitchen when she suddenly fell. She denies associated lightheadedness, dizziness, loss of consciousness, chest pain, shortness of breath. She reports she turned around and then fell to the floor. Patient reports she was on the floor for about 20 to 25 minutes and she was able to get herself up. She then developed mid back pain and over to the left side. Pain progressively got worse and she called her daughter this morning and came to the ED for further evaluation. Over the past few weeks, patient has had decreased appetite. She has had right upper quadrant pain that has been well controlled with Vicodin. No nausea, vomiting, diarrhea. She has chronic lower extremity edema which is been unchanged for the past few months. No orthopnea. She denies other recent illnesses, fevers, chills. No urinary symptoms. In the ED, no acute musculoskeletal abnormalities were found. CT ABD/pelvis is showing a 6.2 x 5.5 cm heterogeneous mass within the pancreatic head, likely representing a pancreatic adenocarcinoma. Initial troponin is 0.082. EKG demonstrates atrial fibrillation with occasionally paced beats with T wave inversions in the inferior leads (unchanged from outpatient EKGs). She received IV Zofran, IV morphine, IV Benadryl. Allergies Allergy/AdvReac Type Severity Reaction Status Date / Time morphine Allergy Intermediate Redness of Verified 07/26/18 12:43 Skin Home Medications Home Medications Medication Instructions Recorded Confirmed Type acetaminophen [Tylenol] 650 mg PO DAILY PRN 07/26/18 07/26/18 History albuterol sulfate [Ventolin HFA] 2 inh INHALATION Q4 PRN 07/26/18 07/26/18 History alendronate 70 mg PO WK 07/26/18 07/26/18 History atorvastatin 10 mg PO DAILY 07/26/18 07/26/18 History carvedilol 3.125 mg PO BID 07/26/18 07/26/18 History cholecalciferol (vitamin D3) 5,000 unit PO DAILY 07/26/18 07/26/18 History [Vitamin D3] furosemide 40 mg PO DAILY 07/26/18 07/26/18 History hydrocodone-acetaminophen 0.5 tab PO Q6H PRN 07/26/18 07/26/18 History magnesium hydroxide [Milk of 30 ml PO DAILY PRN 07/26/18 07/26/18 History Magnesia] magnesium oxide 400 mg PO DAILY 07/26/18 07/26/18 History nitroglycerin [Nitrostat] 0.4 mg SUBLINGUAL UD PRN 07/26/18 07/26/18 History pantoprazole 20 mg PO DAILY 07/26/18 07/26/18 History propylthiouracil 50 mg PO DAILY 07/26/18 07/26/18 History warfarin 4 mg PO DAILY 07/26/18 07/26/18 History Past Med/Surg History Medical History GERD (gastroesophageal reflux disease) (Chronic) Tachy-miranda syndrome (Chronic) Nonischemic cardiomyopathy (Chronic) Pulmonary hypertension (Chronic) Dyslipidemia (Chronic) Hyperthyroidism (Chronic) DM type 2 (diabetes mellitus, type 2) (Chronic) A-fib (Chronic) Surgical History H/O inguinal hernia repair (Chronic) History of cataract surgery (Chronic) History of carpal tunnel surgery of right wrist (Chronic) History of carpal tunnel surgery of left wrist (Chronic) History of permanent cardiac pacemaker placement (Chronic) Family History Father Stroke Brother Stroke Social History Preferred Language: Azerbaijani Current Living Situation: Alone Smoking Status: Never smoker Hx Alcohol Use: No Review of Systems Review of Systems: ROS per HPI, all other systems reviewed and negative Physical Exam Constitutional: WD/WN, vitals as above Eyes: + anicteric sclerae; no conjunctival abnormality and + no PERRL (Right pupil enlarged and irregular (chronic from prior cataract surgery per daughter), left pupil round, reactive to light) ENMT: external ear and nose normal, oropharynx normal Ears: + hearing impairment (Hard of hearing) Respiratory: normal respiratory effort, lungs clear to auscultation Cardiovascular: Rate/Rhythm: regular rate and + irregularly irregular Vessels: normal peripheral pulses Extremities: + edema (+2 pitting edema BLE) Gastrointestinal (Abdomen): Inspection/Auscultation: normal bowel sounds Percussion/Palpation: + abdomen tender (RUQ, mid abdominal) and abdomen soft; no hepatosplenomegaly Musculoskeletal: no cyanosis or clubbing, extremities motor strength 5/5 Head/Neck/Chest: + localized rib tenderness (Posterior, ribs 6-8) Spine: + thoracic spinal tenderness Skin: no rashes, warm and dry Neurologic: Speech / Cognition: normal speech Cranial Nerves: normal accommodation, EOM intact bilaterally and normal facial strength; + no PERRL (Left pupil abnormality as above) Psychiatric: A+Ox3, euthymic affect Results & Data Vital Signs (Past 12 Hours) Vital Signs Temp Pulse Pulse Resp BP BP Pulse Ox 07/26/18 14:21 60 18 116/72 94 07/26/18 12:21 66 18 119/80 100 07/26/18 11:38 88 L 07/26/18 10:35 61 18 130/71 95 07/26/18 08:35 36.4 C L 64 18 122/76 96 Laboratory Results Short CBC 07/26/18 Range/Units 10:03 WBC 9.11 (4.8-10.8) K/uL Hgb 14.0 (12.0-16.0) g/dL Hct 41.7 (37-47) % Plt Count 153 (130-400) K/uL BMP 07/26/18 10:03 Sodium 130 L Potassium 4.6 Chloride 96 L Carbon Dioxide 29 BUN 27 H Creatinine 1.42 H Glucose 141 H Calcium 8.9 Cardiac Enzymes 07/26/18 07/26/18 Range/Units 10:03 10:03 Total Creatine Kinase 111 (26-192) U/L Troponin I 0.082 H* (0-0.045) ng/ml Liver Function 07/26/18 Range/Units 10:03 Total Bilirubin 1.5 H (0.2-1) mg/dl AST 29 (15-37) U/L ALT 19 (12-78) U/L Alkaline Phosphatase 110 (45-117) U/L Albumin 3.3 L (3.4-5.0) gm/dl Urine 07/26/18 Range/Units 10:03 Urine Color Yellow Urine Appearance Clear (Clear) Urine pH 6.0 (4.5-7.5) Ur Specific Lannon 1.015 (1.000-1.030) Urine Protein Trace H (Negative) Urine Glucose (UA) Negative (Negative) Diagnostic Findings CT ABD/PELVIS IMPRESSION: 1. No acute traumatic process within the abdomen or pelvis. 2. A 6.2 x 5.5 cm heterogeneous mass within the pancreatic head with adjacent peripancreatic lymphadenopathy. This likely represents a pancreatic adenocarcinoma. 3. There is fluid surrounding the gallbladder. Therefore, the gallbladder is not well visualized. 4. Body wall edema. 5. Trace pelvic free fluid. 6. Small bilateral pleural effusions. CHEST CT IMPRESSION: 1. There is no acute posttraumatic intrathoracic abnormality. 2. Cardiomegaly and small pleural effusions. 3. No pneumothorax is seen. 4. The bony thorax appears intact. 5. A small volume of upper abdominal ascites is noted. 6. Additional findings as above. HEAD CT IMPRESSION: No acute intracranial abnormality. Atrophy and microvascular ischemic changes. Posterior scalp injury. LUMBAR SPINE CT IMPRESSION: No fractures within the lumbar spine. THORACIC SPINE CT IMPRESSION: 1. No acute thoracic spine fracture or subluxation. 2. Severe multilevel disc space narrowing and moderate osteophytosis and facet arthrosis within the thoracic spine.\ 3. Small bilateral pleural effusions. Mild interstitial pulmonary edema. Code Status & VTE Plan Code Status Patient is a DNR as per my discussion with her and her daughter who is the bedside. VTE Prophylaxis Plan VTE Prophylaxis will be ordered: Yes Supervising Physician Co-Signing Physician Notes Patient is an 87-year-old female with history of atrial fibrillation on chronic anticoagulation, nonischemic cardiomyopathy with EF of 20%, tachybradycardia syndrome and other problems presents with history of fall yesterday. Patient is a poor historian due to significant hearing loss. Patient was recently found to have a pancreatic mass. Fall seems to be likely mechanical in nature. She was unable to get up from the floor for about 20 to 30 minutes after the fall. Complains of back pain since the fall. Imaging studies showed no acute fractures. Please review HPI for complete details of presentation. Patient was found to have supratherapeutic INR with INR elevated at 3.8. Labs also suggestive hyponatremia, hypochloremia likely secondary to poor oral intake. Normal CK levels. Also noted to have mild troponin elevation 0.082. She currently denies any chest pain. EKG showed ST-T wave changes, QTC:473. On exam patient is elderly, no apparent distress, normocephalic atraumatic, +haring impairment, lungs-decreased breath sounds at bases, irregularly irregular rhythm, no audible murmur, pacemaker, soft nontender, 1-2 +B/L LE edema, bruise, paraspinal tenderness on back, grossly no focal deficits. Back pain is likely secondary to the fall, musculoskeletal in origin. Imaging studies showed no acute fractures. Fall precautions, PT OT, may need rehab placement. Pancreatic mass on CAT scan likely suggestive of pancreatic adenocarcinoma. Consider tumor markers, further evaluation as per GI recommendations if patient/family prefers further work up. Agree with trending troponins, consider echo, cardiology evaluation as needed. Monitor volume status given history of ischemic cardiomyopathy. Gentle IV fluids. Hold Coumadin for now. Monitor INR, resume Coumadin as able. I personally reviewed the record. Patient is interviewed and examined at bedside. Patient's care is coordinated with Nidhi Gonzalez [employer]. Please refer to the documentation above for details of patient's presentation and for discussion of other issues.
[2018-07-26] MEDS ORDERED: SODIUM CHLORIDE 0.9% 1000ML 1,000 ML IV SCH (14:58)
[2018-07-26] MEDS: ACETAMINOPHEN 325 MG TAB PO SCH (17:20)
[2018-07-26] MEDS: CARVEDILOL 3.125 MG TAB PO SCH (20:37)
[2018-07-27] MEDS: ACETAMINOPHEN 325 MG TAB PO SCH ×4 (00:36→17:28)
[2018-07-27 06:16] LABS: Hematocrit (blood only) 38.9 % (37-47); Mean Corpuscular Hgb Conc 33.4 g/dL (32-36); Mean Corpuscular Volume 94.4 fL (80-100); Mean Platelet Volume 10.1 fL (7.4-10.4); Platelet Count 152 K/uL (130-400); RDW Coefficient of Variation 17.6 % (11.5-14.5); RDW Standard Deviation 60.2 fL (36.4-46.3); Red Blood Count 4.12 M/uL (4.2-5.4); White Blood Count 7.13 K/uL (4.8-10.8)
[2018-07-27 06:36] LABS: Prothrombin Time 36.8 Seconds (9.0-12.0)
[2018-07-27 06:45] LABS: Albumin Level 2.8 gm/dl (3.4-5.0); BUN Creatinine Ratio 16.9 (10-20); Calcium 8.4 mg/dl (8.5-10.1); Creatinine Clr Calc Pharmacy 22.5 ml/min; Est GFR (African American) 31.8; Est GFR (Non-African American) 27.4; Potassium 4.6 mmol/L (3.5-5.1)
[2018-07-27 06:52] LABS: Albumin Globulin Ratio 0.8 (0.9-2); Globulin 3.5 gm/dl (2.5-4.0); Total Protein 6.3 gm/dl (6.4-8.2); Troponin I 0.111 ng/ml (0-0.045)
[2018-07-27] MEDS: PROPYLTHIOURACIL 50 MG TAB PO SCH (08:24)
[2018-07-27] MEDS: PANTOprazole 40 MG TAB PO SCH (08:24)
[2018-07-27] MEDS: CARVEDILOL 3.125 MG TAB PO SCH ×2 (08:24→20:04)
[2018-07-27] MEDS: MAGNESIUM OXIDE 400 MG TAB PO SCH (08:25)
[2018-07-27] MEDS: ATORVASTATIN 10 MG TAB PO SCH (08:26)
[2018-07-27] MEDS: CHOLECALCIFEROL 1,000 UNITS TAB PO SCH (08:26)
--- NOTE | 2018-07-27 14:31 | Hospitalist Progress Note ---
Date of Service July 27, 2018 Assessment & Plan (1) Fall: rehab per PT/OT, she is due to get her scalp jeimy out tomorrow-this was a superficial head injury from a prior fall. (2) Back pain: -No acute fractures noted on imaging -Pain controlled with [id number] Tylenol -PT/OT evaluations (3) Pancreatic mass: -CT ABD/pelvis showing a 6.2 x 5.5 cm heterogeneous mass within the pancreatic head, likely representing a pancreatic adenocarcinoma -this was a known diagnosis coming in and no further workup or treatment of this mass is desired by patient or family (4) Elevated troponin: demand ischemia in setting of fall with stress and a known severe cardiomyopathy, ACS not present. (5) Hypoxia: appears to have resolved. Cont to wean oxygen. (6) A-fib: -Rate controlled on beta-thomas, will continue -Anticoagulated on Coumadin, INR 3.8 - warfarin held (7) Nonischemic cardiomyopathy: -EF 20% -Holding diuretics as above, appears euvolemic on exam (lower extremity edema at baseline) -Monitor volume status closely -daughter reports pt declined ICD when offered by Dr. Arteaga. (8) Hyperthyroidism: -Continue PTU (9) Dyslipidemia: -Continue statin (10) DVT prophylaxis: -Anticoagulated on Coumadin, INR 3.8 DNR Dispo-to rehab, and she is amenable to this. France Mcfadden DO [facility] Hospitalist Subjective s/p fall at home, multiple recent falls prompting ER visits in the last couple of weeks lives home alone, mild cognitive inhibition? denies back pain today, reports some weakness in her LLE and has some numbness of her toes, also was recently diagnosed with T2DM and is not on medication for this. Family is in room with her and assisted with history Review of Systems Review of Systems: All systems reviewed & are unremarkable except as noted in HPI & below Physical Exam Physical Exam: CONSTITUTIONAL: WNWD, vitals as above, generally well- appearing, ABSENTEE-SHAWNEE EYES: normal conjuctivae, no scleral icterus ENT: MMM RESPIRATORY: clear to auscultation bilaterally, no crackles, rales or wheezes, normal respiratory effort CARDIOVASCULAR: regular rate and rhythm, S1 and 2 heard without murmurs, gallops or rubs, no JVD, no peripheral edema GASTROINTESTINAL: normal bowel sounds, soft, nontender, nondistended MUSCULOSKELETAL: strength 5/5 throughout, head is normocephalic with small lac that is closed with jeimy in posterior head, neck supple, normal palpation of chest wall without tenderness SKIN: warm and dry NEUROLOGIC: CN 2-12 grossly intact, no sensory deficit, normal cognition, normal speech PSYCHIATRIC: alert cooperative and oriented Results & Data Vital Signs (Past 12 Hours) Vital Signs Temp Pulse Resp BP Pulse Ox 07/27/18 11:27 36.5 C 63 20 113/78 99 07/27/18 07:00 36.4 C L 60 20 103/65 100 07/27/18 05:33 36.4 C L 63 18 122/81 92 Laboratory Results Short CBC 07/27/18 Range/Units 06:05 WBC 7.13 (4.8-10.8) K/uL Hgb 13.0 (12.0-16.0) g/dL Hct 38.9 (37-47) % Plt Count 152 (130-400) K/uL BMP 07/27/18 06:05 Sodium 132 L Potassium 4.6 Chloride 98 Carbon Dioxide 29 BUN 28 H Creatinine 1.65 H Glucose 98 Calcium 8.4 L Cardiac Enzymes 07/26/18 07/27/18 Range/Units 22:53 06:05 Troponin I 0.111 H* 0.111 H* (0-0.045) ng/ml Liver Function 07/27/18 Range/Units 06:05 Total Bilirubin 1.0 D (0.2-1) mg/dl AST 23 (15-37) U/L ALT 17 (12-78) U/L Alkaline Phosphatase 93 (45-117) U/L Albumin 2.8 L (3.4-5.0) gm/dl Medications Administered Current Inpatient Medications Acetaminophen (Tylenol) 650 mg PO Q6 KATIE Stop: 08/25/18 17:59 Last Admin: 07/27/18 17:28 Dose: 650 mg Documented by: Atorvastatin Calcium (Lipitor) 10 mg PO DAILY KATIE Stop: 08/26/18 08:59 Last Admin: 07/27/18 08:26 Dose: 10 mg Documented by: Carvedilol (Coreg) 3.125 mg PO BID KATIE Stop: 08/25/18 20:59 Last Admin: 07/27/18 20:04 Dose: 3.125 mg Documented by: Magnesium Oxide (Mag-Ox) 400 mg PO DAILY [facility] Stop: 08/26/18 08:59 Last Admin: 07/27/18 08:25 Dose: 400 mg Documented by: Morphine Sulfate (Morphine Sulfate) 3 mg IV Q4H PRN PRN Reason: Severe Pain Stop: 08/09/18 14:57 Oxycodone HCl (Roxicodone Immediate Rel) 5 mg PO Q6H PRN PRN Reason: Moderate Pain Stop: 08/09/18 14:57 Pantoprazole Sodium (Protonix) 40 mg PO DAILY [facility] Stop: 08/26/18 08:59 Last Admin: 07/27/18 08:24 Dose: 40 mg Documented by: Propylthiouracil (Ptu) 50 mg PO DAILY [facility] Stop: 08/26/18 08:59 Last Admin: 07/27/18 08:24 Dose: 50 mg Documented by: Vitamin D (Vitamin D3) 5,000 units PO DAILY KATIE Stop: 08/26/18 08:59 Last Admin: 07/27/18 08:26 Dose: 5,000 units Documented by:
[2018-07-28] MEDS: ACETAMINOPHEN 325 MG TAB PO SCH ×5 (00:10→23:47)
[2018-07-28] MEDS ORDERED: POLYETHYLENE (MIRALAX) 17 GM PACK PO PRN (00:40)
[2018-07-28] MEDS ORDERED: POLYETHYLENE (MIRALAX) 17 GM PACK PO STA (00:41)
[2018-07-28] MEDS ORDERED: DOCUSATE SODIUM/SENNA 50/8.6MG TAB PO ONE (01:00)
[2018-07-28] MEDS: OXYCODONE HCL IR 5 MG TAB (IMMEDIATE RELEASE) PO PRN (01:16)
[2018-07-28] MEDS: MoRPHine SULFATE 4 MG/ML 1 ML CARP\\VIAL IV PRN (02:06)
[2018-07-28] MEDS: ATORVASTATIN 10 MG TAB PO SCH (08:28)
[2018-07-28] MEDS: CARVEDILOL 3.125 MG TAB PO SCH ×2 (08:28→20:50)
[2018-07-28] MEDS: CHOLECALCIFEROL 1,000 UNITS TAB PO SCH (08:28)
[2018-07-28] MEDS: PANTOprazole 40 MG TAB PO SCH (08:28)
[2018-07-28] MEDS: MAGNESIUM OXIDE 400 MG TAB PO SCH (08:28)
[2018-07-28] MEDS: PROPYLTHIOURACIL 50 MG TAB PO SCH (08:28)
[2018-07-28] MEDS: DOCUSATE SODIUM/SENNA 50/8.6MG TAB PO SCH (08:31)
--- NOTE | 2018-07-28 08:53 | CT Scan Report ---
ABDOMEN AND PELVIS CT WITHOUT CONTRAST CT DOSE: 413.20 mGy.cm HISTORY: Acute generalized abdominal and low back pain worsening abd/back pain TECHNIQUE: Multiaxial CT images of the abdomen and pelvis were performed without contrast. A dose lo wering technique was utilized adhering to the principles of ALARA. COMPARISON STUDY: CT abdomen and pelvis 07/26/2018 FINDINGS: Small pleural effusions with subsegmental bibasilar consolidation suggestive of probable atelectasis. No pneumatosis or pneumoperitoneum. Imaged inferior cardiac chambers are moderately enlarged. Partia lly imaged pacer leads and coronary arterial calcifications. Limited evaluation of the solid abdominal organs without the use of IV contrast. Within the limitatio ns of the exam, the liver, spleen and right adrenal gland are unremarkable. Unchanged moderate thicke hiral of the left adrenal gland. Moderate generalized pancreatic atrophy. Heterogeneous mass within th e region of the pancreatic head redemonstrated measuring approximately 6.0 x 5.4 cm. Upstream pancrea tic ductal dilation redemonstrated again measuring up to 1.5 cm. Prominent adjacent lymph nodes measu ring up to 9 mm. Nodules about the omentum inferiorly to the mass are seen measuring up to 8 mm. Gall bladder wall thickening is noted without cholelithiasis. Fluid surrounding the gallbladder, pancreati c head and duodenum redemonstrated with associated inflammation. Ill-defined hypodense lesions of the inferior pole right kidney are suggestive of probable cysts. Lef t kidney is unremarkable. Mild nonspecific perinephric stranding. Partial distention of the urinary b ladder. Extensive calcification of the abdominal aorta. No bowel obstruction. No significant bowel wa ll thickening. Moderate generalized body wall edema. No acute fracture or subluxation identified. IMPRESSION: 1. Heterogeneous mass centered about the distribution of the pancreatic head measuring up to 6.0 cm r edemonstrated suggestive of a probable pancreatic adenocarcinoma causing upstream pancreatic ductal d ilation. 2. Peripancreatic lymph nodes with omental nodules suggestive of metastasis. 3. Gallbladder wall thickening with right upper quadrant and debbie hepatis inflammation and trace juan carlos e fluid redemonstrated, possibly reactive secondary to the aforementioned pancreatic mass. 4. Moderate generalized body wall edema with small pleural effusions. 5. Additional findings as above. Electronically signed by: Osiel Zamora M.D. 07/28/2018 8:52 AM
[2018-07-28] MEDS ORDERED: BISACODYL 10 MG SUPP PR STA (09:59)
[2018-07-28] MEDS ORDERED: BISACODYL 10 MG SUPP PR PRN (10:01)
--- NOTE | 2018-07-28 10:01 | Hospitalist Progress Note ---
Date of Service July 28, 2018 Assessment & Plan (1) Fall: rehab per PT/OT, staple removal from prior fall. (2) Back pain: -No acute fractures noted on imaging -denies pain today, still on Tylenol, will back this down to PRN. -PT/OT evaluations (3) Pancreatic mass: -CT ABD/pelvis showing a 6.2 x 5.5 cm heterogeneous mass within the pancreatic head, likely representing a pancreatic adenocarcinoma -this was a known diagnosis coming in and no further workup or treatment of this mass is desired by patient or family (4) Elevated troponin: demand ischemia in setting of fall with stress and a known severe cardiomyopathy, ACS not present. (5) Hypoxia: appears to have resolved. Cont to wean oxygen. (6) A-fib: -Rate controlled on beta-thomas, will continue -coumadin held in setting of supratherapeutic INR. (7) Nonischemic cardiomyopathy: -EF 20% -diuretics held on admission; she is stable and euvolemic. Will start them again now for maintenance. -daughter reports pt declined ICD when offered by Dr. Arteaga. (8) Hyperthyroidism: -Continue PTU (9) Dyslipidemia: -Continue statin (10) DVT prophylaxis: Coumadin DNR Dispo-to rehab, and she is amenable to this. France Mcfadden DO [facility] Hospitalist Subjective +nausea, +constipation and patient states she is backed up. Denies back pain, denies CP or SOB. States there is an improvement in the weakness and numbness in her L toes. Review of Systems Review of Systems: All systems reviewed & are unremarkable except as noted in HPI & below Physical Exam Physical Exam: CONSTITUTIONAL: WNWD, vitals as above, generally well- appearing, LYTTON EYES: normal conjunctivae, no scleral icterus ENT: MMM RESPIRATORY: clear to auscultation bilaterally, no crackles, rales or wheezes, normal respiratory effort CARDIOVASCULAR: regular rate and rhythm, S1 and 2 heard without murmurs, gallops or rubs, no JVD, no peripheral edema GASTROINTESTINAL: normal bowel sounds, soft, nontender, nondistended MUSCULOSKELETAL: strength 5/5 throughout, head is normocephalic with small lac that is closed with jeimy in posterior head, she is able to sit up on her own in bed and move around with ease. No TTP in lower back area. SKIN: warm and dry NEUROLOGIC: CN 2-12 grossly intact, no sensory deficit, normal cognition, normal speech PSYCHIATRIC: alert cooperative and oriented Results & Data Vital Signs (Past 12 Hours) Vital Signs Temp Pulse Pulse Resp BP Pulse Ox 07/28/18 07:17 36.6 C 65 20 117/76 95 07/28/18 04:00 36.5 C 70 17 109/72 93 07/28/18 03:10 36.6 C 70 21 119/74 95 07/27/18 22:20 60 Medications Administered Current Inpatient Medications Acetaminophen (Tylenol) 650 mg PO Q6 KATIE Stop: 08/25/18 17:59 Last Admin: 07/28/18 05:38 Dose: 650 mg Documented by: Atorvastatin Calcium (Lipitor) 10 mg PO DAILY [facility]IE Stop: 08/26/18 08:59 Last Admin: 07/28/18 08:28 Dose: 10 mg Documented by: Bisacodyl (Dulcolax) 10 mg IA DAILY PRN PRN Reason: Constipation Stop: 08/27/18 10:00 Bisacodyl (Dulcolax) 10 mg IA NOW STA Stop: 07/28/18 10:00 Carvedilol (Coreg) 3.125 mg PO BID KATIE Stop: 08/25/18 20:59 Last Admin: 07/28/18 08:28 Dose: 3.125 mg Documented by: Magnesium Oxide (Mag-Ox) 400 mg PO DAILY [facility]IE Stop: 08/26/18 08:59 Last Admin: 07/28/18 08:28 Dose: 400 mg Documented by: Morphine Sulfate (Morphine Sulfate) 3 mg IV Q4H PRN PRN Reason: Severe Pain Stop: 08/09/18 14:57 Last Admin: 07/28/18 02:06 Dose: 3 mg Documented by: Oxycodone HCl (Roxicodone Immediate Rel) 5 mg PO Q6H PRN PRN Reason: Moderate Pain Stop: 08/09/18 14:57 Last Admin: 07/28/18 01:16 Dose: 5 mg Documented by: Pantoprazole Sodium (Protonix) 40 mg PO DAILY [facility]ATIE Stop: 08/26/18 08:59 Last Admin: 07/28/18 08:28 Dose: 40 mg Documented by: Polyethylene Glycol (Miralax Powder Packet) 17 gm PO DAILY PRN PRN Reason: Constipation Stop: 08/27/18 00:39 Last Admin: 07/28/18 08:37 Dose: 17 gm Documented by: Propylthiouracil (Ptu) 50 mg PO DAILY [facility] Stop: 08/26/18 08:59 Last Admin: 07/28/18 08:28 Dose: 50 mg Documented by: Senna/Docusate Sodium (Senokot S) 1 tab PO QAM [facility] Stop: 08/27/18 08:59 Last Admin: 07/28/18 08:31 Dose: 1 tab Documented by: Vitamin D (Vitamin D3) 5,000 units PO DAILY [facility] Stop: 08/26/18 08:59 Last Admin: 07/28/18 08:28 Dose: 5,000 units Documented by:
[2018-07-28] MEDS ORDERED: ONDANSETRON INJ 2 MG/ML 2 ML VIAL IV PRN (12:59)
[2018-07-29] MEDS: ACETAMINOPHEN 325 MG TAB PO SCH (06:27)
[2018-07-29] MEDS: CARVEDILOL 3.125 MG TAB PO SCH ×2 (07:54→20:51)
[2018-07-29] MEDS: DOCUSATE SODIUM/SENNA 50/8.6MG TAB PO SCH (07:54)
[2018-07-29] MEDS: CHOLECALCIFEROL 1,000 UNITS TAB PO SCH (07:55)
[2018-07-29] MEDS: PROPYLTHIOURACIL 50 MG TAB PO SCH (07:55)
[2018-07-29] MEDS: MAGNESIUM OXIDE 400 MG TAB PO SCH (07:56)
[2018-07-29] MEDS: ATORVASTATIN 10 MG TAB PO SCH (07:56)
[2018-07-29] MEDS: PANTOprazole 40 MG TAB PO SCH (07:56)
[2018-07-29] MEDS ORDERED: ACETAMINOPHEN 325 MG TAB PO PRN (08:42)
--- NOTE | 2018-07-29 08:51 | XRay Report ---
XR chest 1V portable CLINICAL HISTORY: 87 years-old Female presenting with shortness of breath. TECHNIQUE: Portable upright AP view of the chest was obtained. COMPARISON: Chest CT from 07/26/2018. FINDINGS: Left subclavian pacer with leads to the right atrium and right ventricular apex. Atherosclerosis of t he aortic arch. Pulmonary vascular prominence. Cardiac silhouette moderately enlarged. Bilateral jeffery r prominence. Prominent lung markings may relate to interlobular septal thickening and/or pulmonary v ascularity. Small bilateral pleural effusions. Bibasilar opacities. No pneumothorax. Degenerative alyce nges of the thoracic spine. Upper abdomen normal. IMPRESSION: 1. Cardiomegaly with volume overload and congestive change. No clair pulmonary edema. 2. Bilateral hilar prominence vascular in etiology. 3. Bilateral pleural effusions and bibasilar atelectasis Electronically signed by: Ruddy Streeter M.D. 07/29/2018 8:49 AM
[2018-07-29 09:16] LABS: Hematocrit (blood only) 40.2 % (37-47); Hemoglobin 13.6 g/dL (12.0-16.0); Mean Corpuscular Hgb Conc 33.8 g/dL (32-36); Mean Corpuscular Volume 93.9 fL (80-100); Mean Platelet Volume 9.9 fL (7.4-10.4); Platelet Count 166 K/uL (130-400); RDW Coefficient of Variation 17.7 % (11.5-14.5); RDW Standard Deviation 60.2 fL (36.4-46.3); Red Blood Count 4.28 M/uL (4.2-5.4); White Blood Count 8.08 K/uL (4.8-10.8)
[2018-07-29 09:25] LABS: INR 3.2 (0.9-1.1); Prothrombin Time 30.3 Seconds (9.0-12.0)
[2018-07-29 09:44] LABS: BUN Creatinine Ratio 16.9 (10-20); Calcium 9.3 mg/dl (8.5-10.1); Creatinine Clr Calc Pharmacy 29.1 ml/min; Est GFR (African American) 44.1; Magnesium 2.1 mg/dl (1.8-2.4)
--- NOTE | 2018-07-29 10:02 | Gastroenterology Progress Note ---
Date of Service July 29, 2018 Assessment & Plan (1) Pancreatic mass: Discussed case with Dr. Mcfadden this AM. Pt and family do not wish to pursue a diagnostic workup for pancreatic mass. Thank you for allowing us to participate in the care of this patient. Please call with any acute changes, questions or concerns. GI will sign off.
[2018-07-29] MEDS: FUROSEMIDE 40 MG TAB PO SCH (10:17)
[2018-07-29] MEDS: OXYCODONE HCL IR 5 MG TAB (IMMEDIATE RELEASE) PO PRN (10:47)
[2018-07-29] MEDS ORDERED: GLYCERIN ADULT 12 EA SUPP PR ONE (14:00)
[2018-07-29] MEDS ORDERED: MENTHOL-ZINC OXIDE 360 APPLN/120 GM TUBE EXT PRN (14:01)
[2018-07-29] MEDS ORDERED: GLYCERIN ADULT 12 EA SUPP PR PRN (14:01)
--- NOTE | 2018-07-29 14:08 | Hospitalist Progress Note ---
Date of Service July 29, 2018 Assessment & Plan (1) Dysphagia: Speech pathology to evaluate-patient reports this has been ongoing for a long time. (2) Constipation: Causing some nausea today and yesterday. Small BM this morning. Ordered suppository and enema PRN. Cont to ambulate as tolerated. (3) Fall: rehab per PT/OT, staple removal from prior fall. (4) Back pain: -No acute fractures noted on imaging -reports some pain present in lower thoracic area, which is TTP with ropy, tight paraspinal musculature on exam-scheduled tylenol, tramadol PRN, cont to ambulate as tolerated. K pad and calmoseptine for comfort. -PT/OT evaluations (5) Pancreatic mass: -CT ABD/pelvis showing a 6.2 x 5.5 cm heterogeneous mass within the pancreatic head, likely representing a pancreatic adenocarcinoma -this was a known diagnosis coming in and no further workup or treatment of this mass is desired by patient or family (6) Elevated troponin: demand ischemia in setting of fall with stress and a known severe cardiomyopathy, ACS not present. (7) A-fib: -Rate controlled on beta-thomas, will continue -coumadin held in setting of supratherapeutic INR. (8) Supratherapeutic INR: hold warfarin (9) Nonischemic cardiomyopathy: -EF 20% -cont home diuretics -daughter reports pt declined ICD when offered by Dr. Arteaga. (10) Hyperthyroidism: -Continue PTU (11) Dyslipidemia: -Continue statin (12) DVT prophylaxis: Coumadin DNR Dispo-to rehab, and she is amenable to this. France Mcfadden DO [facility] Hospitalist Subjective denies numbness in toes or weakness in LLE any longer reports back pain came on again today reports some nausea 2/2 being backed up small BM today, but she has been constipated for many days. Review of Systems Review of Systems: All systems reviewed & are unremarkable except as noted in HPI & below Physical Exam Physical Exam: CONSTITUTIONAL: WNWD, vitals as above, generally well- appearing, [place] EYES: normal conjunctivae, no scleral icterus ENT: MMM RESPIRATORY: clear to auscultation bilaterally, no crackles, rales or wheezes, normal respiratory effort CARDIOVASCULAR: regular rate and rhythm, S1 and 2 heard without murmurs, gallops or rubs, no JVD, no peripheral edema GASTROINTESTINAL: normal bowel sounds, soft, nontender, nondistended MUSCULOSKELETAL: strength 5/5 throughout, head is normocephalic with small lac that is closed with jeimy in posterior head, she is able to sit up on her own in bed and move around with ease. TTP in lower thoracic/upper lumbar area with ropey, tight paraspinal muscles. SKIN: warm and dry NEUROLOGIC: CN 2-12 grossly intact, no sensory deficit, normal cognition, normal speech PSYCHIATRIC: alert cooperative and oriented Results & Data Vital Signs (Past 12 Hours) Vital Signs Temp Pulse Resp BP Pulse Ox 07/29/18 11:28 36.4 C L 65 18 127/86 95 07/29/18 07:12 36.4 C L 65 19 119/81 95 07/29/18 03:20 62 18 116/76 91 Laboratory Results Short CBC 07/29/18 Range/Units 09:00 WBC 8.08 (4.8-10.8) K/uL Hgb 13.6 (12.0-16.0) g/dL Hct 40.2 (37-47) % Plt Count 166 (130-400) K/uL BMP 07/29/18 09:00 Sodium 132 L Potassium 5.0 Chloride 97 L Carbon Dioxide 28 BUN 21 H Creatinine 1.26 H Glucose 148 H Calcium 9.3 Medications Administered Current Inpatient Medications Acetaminophen (Tylenol) 1,000 mg PO Q8H KATIE Stop: 08/28/18 13:59 Atorvastatin Calcium (Lipitor) 10 mg PO DAILY KATIE Stop: 08/26/18 08:59 Last Admin: 07/29/18 07:56 Dose: 10 mg Documented by: Calamine/Phenol (Calmoseptine) 1 appln EXT TID PRN PRN Reason: back pain Stop: 08/28/18 20:59 Carvedilol (Coreg) 3.125 mg PO BID KATIE Stop: 08/25/18 20:59 Last Admin: 07/29/18 07:54 Dose: 3.125 mg Documented by: Furosemide (Lasix) 40 mg PO DAILY KATIE Stop: 08/28/18 08:59 Last Admin: 07/29/18 10:17 Dose: 40 mg Documented by: Glycerin (Glycerin Adult) 1 box GA DAILY PRN PRN Reason: Constipation Stop: 08/28/18 14:00 Glycerin (Glycerin Adult) 1 box GA NOW ONE Stop: 07/29/18 14:01 Magnesium Oxide (Mag-Ox) 400 mg PO DAILY [facility] Stop: 08/26/18 08:59 Last Admin: 07/29/18 07:56 Dose: 400 mg Documented by: Morphine Sulfate (Morphine Sulfate) 3 mg IV Q4H PRN PRN Reason: Severe Pain Stop: 08/09/18 14:57 Last Admin: 07/28/18 02:06 Dose: 3 mg Documented by: Ondansetron HCl (Zofran) 4 mg IV Q8H PRN PRN Reason: Nausea Stop: 08/27/18 12:58 Pantoprazole Sodium (Protonix) 40 mg PO DAILY [facility] Stop: 08/26/18 08:59 Last Admin: 07/29/18 07:56 Dose: 40 mg Documented by: Polyethylene Glycol (Miralax Powder Packet) 17 gm PO DAILY [facility] Stop: 08/28/18 14:14 Propylthiouracil (Ptu) 50 mg PO DAILY [facility] Stop: 08/26/18 08:59 Last Admin: 07/29/18 07:55 Dose: 50 mg Documented by: Senna/Docusate Sodium (Senokot S) 1 tab PO QAM [facility] Stop: 08/27/18 08:59 Last Admin: 07/29/18 07:54 Dose: 1 tab Documented by: Tramadol HCl (Ultram) 50 mg PO Q4H PRN PRN Reason: Pain Stop: 08/28/18 13:58 Vitamin D (Vitamin D3) 5,000 units PO DAILY [facility] Stop: 08/26/18 08:59 Last Admin: 07/29/18 07:55 Dose: 5,000 units Documented by:
[2018-07-29] MEDS: POLYETHYLENE (MIRALAX) 17 GM PACK PO SCH (14:35)
[2018-07-29] MEDS: ACETAMINOPHEN 500 MG TAB PO SCH ×2 (15:29→23:35)
[2018-07-30] MEDS: MoRPHine SULFATE 4 MG/ML 1 ML CARP\\VIAL IV PRN (02:38)
[2018-07-30 06:46] LABS: Hematocrit (blood only) 39.6 % (37-47); Hemoglobin 13.5 g/dL (12.0-16.0); Mean Corpuscular Hgb Conc 34.1 g/dL (32-36); Mean Corpuscular Volume 93.2 fL (80-100); Mean Platelet Volume 9.7 fL (7.4-10.4); Platelet Count 152 K/uL (130-400); RDW Coefficient of Variation 17.6 % (11.5-14.5); RDW Standard Deviation 60.1 fL (36.4-46.3); Red Blood Count 4.25 M/uL (4.2-5.4); White Blood Count 7.78 K/uL (4.8-10.8)
[2018-07-30 06:57] LABS: INR 2.4 (0.9-1.1); Prothrombin Time 23.2 Seconds (9.0-12.0)
[2018-07-30 07:23] LABS: BUN Creatinine Ratio 16.9 (10-20); Calcium 9.2 mg/dl (8.5-10.1); Est GFR (African American) 45.8; Est GFR (Non-African American) 39.5; Potassium 4.8 mmol/L (3.5-5.1)
[2018-07-30] MEDS: PANTOprazole 40 MG TAB PO SCH (07:35)
[2018-07-30] MEDS: CHOLECALCIFEROL 1,000 UNITS TAB PO SCH (07:35)
[2018-07-30] MEDS: ATORVASTATIN 10 MG TAB PO SCH (07:35)
[2018-07-30] MEDS: ACETAMINOPHEN 500 MG TAB PO SCH ×3 (07:35→23:16)
[2018-07-30] MEDS: FUROSEMIDE 40 MG TAB PO SCH (07:37)
[2018-07-30] MEDS: PROPYLTHIOURACIL 50 MG TAB PO SCH (07:37)
[2018-07-30] MEDS: CARVEDILOL 3.125 MG TAB PO SCH ×2 (07:37→21:30)
[2018-07-30] MEDS: MAGNESIUM OXIDE 400 MG TAB PO SCH (07:37)
[2018-07-30] MEDS: DOCUSATE SODIUM/SENNA 50/8.6MG TAB PO SCH (07:38)
[2018-07-30] MEDS: POLYETHYLENE (MIRALAX) 17 GM PACK PO SCH (07:40)
--- NOTE | 2018-07-30 19:10 | Hospitalist Progress Note ---
Date of Service July 30, 2018 Assessment & Plan (1) Dysphagia: Speech pathology to evaluate-patient reports this has been ongoing for a long time. REINFORCEMENT MAKER recs include aspiration modifications and a moist, slippery diet. Recommendations were communicated to her daughters hwo were at bedside to day. (2) Constipation: Causing some nausea today and yesterday. She has now had a couple of BMs and nausea has resolved. She is eating lunch without issue. (3) Fall: rehab per PT/OT, staple removal from prior fall performed today. (4) Back pain: -No acute fractures noted on imaging -reports some pain present in lower thoracic area, which is TTP with ropy, tight paraspinal musculature on exam-scheduled tylenol is helping, tramadol PRN, cont to ambulate as tolerated. K pad and calmoseptine for comfort. -PT/OT evaluations (5) Pancreatic mass: -CT ABD/pelvis showing a 6.2 x 5.5 cm heterogeneous mass within the pancreatic head, likely representing a pancreatic adenocarcinoma -this was a known diagnosis coming in and no further workup or treatment of this mass is desired by patient or family (6) Elevated troponin: demand ischemia in setting of fall with stress and a known severe cardiomyopathy, ACS not present. (7) A-fib: -Rate controlled on beta-thomas, will continue -coumadin held in setting of supratherapeutic INR. (8) Supratherapeutic INR: hold warfarin (9) Nonischemic cardiomyopathy: -EF 20% -cont home diuretics -daughter reports pt declined ICD when offered by Dr. Arteaga. (10) Hyperthyroidism: -Continue PTU (11) Dyslipidemia: -Continue statin (12) DVT prophylaxis: Coumadin DNR Dispo-to rehab, and she is amenable to this. France Mcfadden DO [facility] Hospitalist Subjective doing well back pain has resolved but she states it can become severe in the middle of the night tolerating PO-nausea improved she has had a BM in the past couple of days no other symptoms or concerns present Review of Systems Review of Systems: All systems reviewed & are unremarkable except as noted in HPI & below Physical Exam Physical Exam: CONSTITUTIONAL: WNWD, vitals as above, generally well- appearing, [place] EYES: normal conjunctivae, no scleral icterus ENT: MMM RESPIRATORY: clear to auscultation bilaterally, no crackles, rales or wheezes, normal respiratory effort CARDIOVASCULAR: regular rate and rhythm, S1 and 2 heard without murmurs, gallops or rubs, no JVD, no peripheral edema GASTROINTESTINAL: normal bowel sounds, soft, nontender, nondistended MUSCULOSKELETAL: strength 5/5 throughout, head is normocephalic with small lac that is closed with jeimy in posterior head, she is able to sit up on her own in bed and move around with ease. TTP in lower thoracic/upper lumbar area with ropey, tight paraspinal muscles. SKIN: warm and dry NEUROLOGIC: CN 2-12 grossly intact, no sensory deficit, normal cognition, normal speech PSYCHIATRIC: alert cooperative and oriented Results & Data Vital Signs (Past 12 Hours) Vital Signs Temp Pulse Resp BP Pulse Ox 07/30/18 19:05 36.7 C 69 20 112/75 97 07/30/18 15:27 36.4 C L 62 20 112/65 93 07/30/18 07:43 36.3 C L 65 18 110/75 95 Laboratory Results Short CBC 07/30/18 Range/Units 06:32 WBC 7.78 (4.8-10.8) K/uL Hgb 13.5 (12.0-16.0) g/dL Hct 39.6 (37-47) % Plt Count 152 (130-400) K/uL BMP 07/30/18 06:32 Sodium 134 L Potassium 4.8 Chloride 97 L Carbon Dioxide 29 BUN 21 H Creatinine 1.22 H Glucose 92 Calcium 9.2 Medications Administered Current Inpatient Medications Acetaminophen (Tylenol) 1,000 mg PO Q8H [facility] Stop: 08/28/18 15:59 Last Admin: 07/30/18 17:10 Dose: 1,000 mg Documented by: Atorvastatin Calcium (Lipitor) 10 mg PO DAILY [facility] Stop: 08/26/18 08:59 Last Admin: 07/30/18 07:35 Dose: 10 mg Documented by: Calamine/Phenol (Calmoseptine) 1 appln EXT TID PRN PRN Reason: back pain Stop: 08/28/18 20:59 Last Admin: 07/30/18 08:40 Dose: 1 appln Documented by: Carvedilol (Coreg) 3.125 mg PO BID [facility]ATIE Stop: 08/25/18 20:59 Last Admin: 07/30/18 07:37 Dose: 3.125 mg Documented by: Furosemide (Lasix) 40 mg PO DAILY [facility] Stop: 08/28/18 08:59 Last Admin: 07/30/18 07:37 Dose: 40 mg Documented by: Glycerin (Glycerin Adult) 1 box [place] DAILY PRN PRN Reason: Constipation Stop: 08/28/18 14:00 Last Admin: 07/30/18 18:16 Dose: 1 box Documented by: Magnesium Oxide (Mag-Ox) 400 mg PO DAILY [facility] Stop: 08/26/18 08:59 Last Admin: 07/30/18 07:37 Dose: 400 mg Documented by: Morphine Sulfate (Morphine Sulfate) 3 mg IV Q4H PRN PRN Reason: Severe Pain Stop: 08/09/18 14:57 Last Admin: 07/30/18 02:38 Dose: 3 mg Documented by: Ondansetron HCl (Zofran) 4 mg IV Q8H PRN PRN Reason: Nausea Stop: 08/27/18 12:58 Pantoprazole Sodium (Protonix) 40 mg PO DAILY [facility] Stop: 08/26/18 08:59 Last Admin: 07/30/18 07:35 Dose: 40 mg Documented by: Polyethylene Glycol (Miralax Powder Packet) 17 gm PO DAILY [facility] Stop: 08/28/18 14:14 Last Admin: 07/30/18 07:40 Dose: 17 gm Documented by: Propylthiouracil (Ptu) 50 mg PO DAILY [facility] Stop: 08/26/18 08:59 Last Admin: 07/30/18 07:37 Dose: 50 mg Documented by: Senna/Docusate Sodium (Senokot S) 1 tab PO QAM [facility] Stop: 08/27/18 08:59 Last Admin: 07/30/18 07:38 Dose: 1 tab Documented by: Tramadol HCl (Ultram) 50 mg PO Q4H PRN PRN Reason: Pain Stop: 08/28/18 13:58 Vitamin D (Vitamin D3) 5,000 units PO DAILY [facility] Stop: 08/26/18 08:59 Last Admin: 07/30/18 07:35 Dose: 5,000 units Documented by:
[2018-07-31 06:08] LABS: Prothrombin Time 19.4 Seconds (9.0-12.0)
[2018-07-31] MEDS: TRAMADOL HCL 50 MG TABLET PO PRN ×2 (06:17→10:14)
--- NOTE | 2018-07-31 09:43 | Hospitalist Progress Note ---
Date of Service July 31, 2018 Assessment & Plan (1) Back pain: Presented with severe back pain after fall. CT imaging of thoracic and lumbar spine showed degenerative disease, no fractures. Continue scheduled acetaminophen + PRN tramadol. Add lidocaine patch. (2) Fall: Several recent falls, apparently mechanical. PT / OT. Fall precautions. (3) Elevated troponin: Serum troponin I's as high as 0.111. No anginal symptoms. EKG showed AF with occasional ventricular paced beats, NSSTTWA's. Echo showed global hypokinesis. Elevated troponins probably secondary to demand ischemia. (4) Chronic systolic CHF (congestive heart failure): Chronic left ventricular systolic heart failure attributed to nonischemic cardiomyopathy. Echo 07/28/18 showed global LV hypokinesis with LVEF 30-35%. Compensated. Continue carvedilol and furosemide. No CHRIS or ARB due to CKD. (5) A-fib: Chronic atrial fibrillation. Rate controlled on carvedilol. Continue warfarin. 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 (7) Pancreatic mass: Mass head of pancreas measuring 6 cm in greatest diameter noted on CT of abdomen. Appearance of mass worrisome for adenocarcinoma. Enlarged peripancreatic adenopathy and omental nodules also noted, worrisome for metastatic disease. Bilirubin 1.5, other LFT's normal. GI consulted. Patient and her family opted not to pursue further diagnostic testing or treatment. (8) GERD (gastroesophageal reflux disease): Continue PPI. (9) Constipation: Bowel regimen as ordered. (10) Dysphagia: Seen by CLINICAL TRIAL LEADER. Bedside evaluation performed and there was no apparent constipation. Carrier recommended for medication administrations. Aspiration precautions. May be prudent to discontinue alendronate. (11) CKD (chronic kidney disease), stage III: Serum creatinine 1.22 on 07/30/18. Avoid NSAID's. Follow. (12) Hyponatremia: Serum sodium 130 day of admission. 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 Serum sodium 134 07/30. Follow. Consider fluid restriction if hyponatremia worsens. (13) DM type 2 (diabetes mellitus, type 2): Diet-controlled. FBS 111 on 07/30. Tight control not indicated given advanced age and comorbidities. (14) Dyslipidemia: Continue atorvastatin. (15) Hyperthyroidism: Last TSH in clinic was normal. Continue propylthiouracil. (16) Osteoporosis: Discontinue alendronate because of dysphagia. Vitamin D + calcium as tolerated. (17) DVT prophylaxis: Continue warfarin. (18) Do not resuscitate status: Per patient's wishes. (19) Discharge planning issues: Unable to return home due to ongoing back pain, frequent falls, need for skilled care. Case Management following. Insurance authorization for skilled care at [facility] pending. Internal Medicine follow-up with Dr. Hays. CT abdomen worrisome for adenocarcinoma of head of pancreas with metastatic disease. Patient does not wish to undergo further evaluation or treatment. Will likely see rapid decline as disease progresses; consider palliative care / hospice at that time. Subjective Recheck for multiple problems. Patient seen in their room around 9:30. Continues to have thoracic back pain. Analgesics help. Complains of constipation (although 5 documented bowel movements since 07/28). Review of Systems: Constitutional- no fever. Cardiac- no chest pain. Pulmonary- no cough or SOB. GI- constipated; intermittent nausea, vomiting, diarrhea, melena, hematochezia. - no urinary symptoms. Otherwise, as noted above. Physical Exam Constitutional: no acute distress Eyes: + anicteric sclerae ENMT: Ears: + hearing impairment (OK with hearing amplifier left ear ) Respiratory: no respiratory distress Cardiovascular: Rate/Rhythm: + irregularly irregular Heart Sounds: no gallop Vessels: no JVD Extremities: + edema (1-2+ pretibial) Gastrointestinal (Abdomen): Inspection/Auscultation: normal bowel sounds Percussion/Palpation: abdomen soft; abdomen nontender Psychiatric: Orientation: alert Results & Data Vital Signs (Past 12 Hours) Vital Signs Temp Pulse Resp BP BP Pulse Ox 07/31/18 06:59 36.3 C L 59 L 18 116/74 96 07/31/18 03:45 36.5 C 62 17 120/82 95 07/30/18 23:35 36.3 C L 61 18 102/66 94 Laboratory Results Laboratory Results - last 24 hr 07/31/18 05:15 PT 19.4 H INR 2.0 H
[2018-07-31] MEDS: CARVEDILOL 3.125 MG TAB PO SCH (10:04)
[2018-07-31] MEDS: ACETAMINOPHEN 500 MG TAB PO SCH (10:04)
[2018-07-31] MEDS: FUROSEMIDE 40 MG TAB PO SCH (10:05)
[2018-07-31] MEDS: ATORVASTATIN 10 MG TAB PO SCH (10:05)
[2018-07-31] MEDS: POLYETHYLENE (MIRALAX) 17 GM PACK PO SCH (10:06)
[2018-07-31] MEDS: PROPYLTHIOURACIL 50 MG TAB PO SCH (10:06)
[2018-07-31] MEDS: PANTOprazole 40 MG TAB PO SCH (10:06)
[2018-07-31] MEDS: MAGNESIUM OXIDE 400 MG TAB PO SCH (10:06)
[2018-07-31] MEDS: CHOLECALCIFEROL 1,000 UNITS TAB PO SCH (10:07)
[2018-07-31] MEDS: DOCUSATE SODIUM/SENNA 50/8.6MG TAB PO SCH (10:08)
[2018-07-31] MEDS ORDERED: LIDOCAINE 5% 1 PATCH TD SCH (10:30)
--- NOTE | 2018-07-31 11:13 | Discharge Summary ---
Date of Service Date of Admission: 07/26/18 Date of Discharge: 07/31/18 Admission HPI Per Admitting Provider 87-year-old female who presents the ED with back pain after a fall last evening. Recently, patient has had 2 visits to [place] ED, one for a fall in which she had a laceration to her head which required jeimy and another for right upper quadrant pain. A right upper quadrant ultrasound was obtained that demonstrated a mass. Outpatient CT scan obtained yesterday showed pancreatic mass. Last evening, patient reports she was standing in her kitchen when she suddenly fell. She denies associated lightheadedness, dizziness, loss of consciousness, chest pain, shortness of breath. She reports she turned around and then fell to the floor. Patient reports she was on the floor for about 20 to 25 minutes and she was able to get herself up. She then developed mid back pain and over to the left side. Pain progressively got worse and she called her daughter this morning and came to the ED for further evaluation. Over the past few weeks, patient has had decreased appetite. She has had right upper quadrant pain that has been well controlled with Vicodin. No nausea, vomiting, diarrhea. She has chronic lower extremity edema which is been unchanged for the past few months. No orthopnea. She denies other recent illnesses, fevers, chills. No urinary symptoms. In the ED, no acute musculoskeletal abnormalities were found. CT ABD/pelvis is showing a 6.2 x 5.5 cm heterogeneous mass within the pancreatic head, likely representing a pancreatic adenocarcinoma. Initial troponin is 0.082. EKG demonstrates atrial fibrillation with occasionally paced beats with T wave inversions in the inferior leads (unchanged from outpatient EKGs). She received IV Zofran, IV morphine, IV Benadryl. Admission Exam Per Admitting Provider Constitutional: WD/WN, vitals as above Eyes: + anicteric sclerae; no conjunctival abnormality and + no PERRL (Right pupil enlarged and irregular (chronic from prior cataract surgery per daughter), left pupil round, reactive to light) ENMT: external ear and nose normal, oropharynx normal Ears: + hearing impairment (Hard of hearing) Respiratory: normal respiratory effort, lungs clear to auscultation Cardiovascular: Rate/Rhythm: regular rate and + irregularly irregular Vessels: normal peripheral pulses Extremities: + edema (+2 pitting edema BLE) Gastrointestinal (Abdomen): Inspection/Auscultation: normal bowel sounds Percussion/Palpation: + abdomen tender (RUQ, mid abdominal) and abdomen soft; no hepatosplenomegaly Musculoskeletal: no cyanosis or clubbing, extremities motor strength 5/5 Head/Neck/Chest: + localized rib tenderness (Posterior, ribs 6-8) Spine: + thoracic spinal tenderness Skin: no rashes, warm and dry Neurologic: Speech / Cognition: normal speech Cranial Nerves: normal accommodation, EOM intact bilaterally and normal facial strength; + no PERRL (Left pupil abnormality as above) Psychiatric: A+Ox3, euthymic affect Principal Diagnosis severe back pain falls OTHER ACUTE / NEW DIAGNOSES elevated serum troponin- probable demand ischemia pancreatic mass, head of pancreas, radiographic appearance consistent with adenocarcinoma with apparent metastatic disease hyponatremia Discharge Data Allergies Allergy/AdvReac Type Severity Reaction Status Date / Time morphine Allergy Intermediate Redness of Verified 07/26/18 12:43 Skin Consultations 07/26/18 12:14 ED Decision to Admit Stat 07/26/18 13:35 Consult Gastroenterology Routine 07/26/18 14:58 Consult Case Management - Discharge Planning Routine Ordered Studies 07/26/18 09:36 CT abd pelvis IV con only Stat CT chest w con Stat CT head/brain wo con Stat CT lumbar spine wo con Stat CT thoracic spine wo con Stat 07/28/18 00:39 CT abd pelvis wo con Urgent Hospital Course (1) Back pain: Presented with severe back pain after fall. CT imaging of thoracic and lumbar spine showed degenerative disease, no fractures. Continue scheduled acetaminophen + PRN tramadol. Added lidocaine patch. (2) Fall: Several recent falls, apparently mechanical. PT / OT. Fall precautions. (3) Elevated troponin: Serum troponin I's as high as 0.111. No anginal symptoms. EKG showed AF with occasional ventricular paced beats, NSSTTWA's. Echo showed global hypokinesis. Elevated troponins probably secondary to demand ischemia. (4) Chronic systolic CHF (congestive heart failure): Chronic left ventricular systolic heart failure attributed to nonischemic cardiomyopathy. Echo 07/28/18 showed global LV hypokinesis with LVEF 30-35%. Compensated. Continue carvedilol and furosemide. No CHRIS or ARB due to CKD. (5) A-fib: Chronic atrial fibrillation. Rate controlled on carvedilol. Continue warfarin. 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 (7) Pancreatic mass: Mass head of pancreas measuring 6 cm in greatest diameter noted on CT of abdomen. Appearance of mass worrisome for adenocarcinoma. Enlarged peripancreatic adenopathy and omental nodules also noted, worrisome for metastatic disease. Bilirubin 1.5, other LFT's normal. GI consulted. Patient and her family opted not to pursue further diagnostic testing or treatment. (8) GERD (gastroesophageal reflux disease): Continue PPI. (9) Constipation: Bowel regimen as ordered. (10) Dysphagia: Seen by [employer]. Bedside evaluation performed and there was no apparent constipation. Carrier recommended for medication administrations. Aspiration precautions. May be prudent to discontinue alendronate. (11) CKD (chronic kidney disease), stage III: Serum creatinine 1.22 on 07/30/18. Avoid NSAID's. Follow. (12) Hyponatremia: Serum sodium 130 day of admission. 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 Serum sodium 134 07/30. Follow. Consider fluid restriction if hyponatremia worsens. (13) DM type 2 (diabetes mellitus, type 2): Diet-controlled. FBS 111 on 07/30. Tight control not indicated given advanced age and comorbidities. (14) Dyslipidemia: Continue atorvastatin. (15) Hyperthyroidism: Last TSH in clinic was normal. Continue propylthiouracil. (16) Osteoporosis: Discontinue alendronate because of dysphagia. Vitamin D + calcium as tolerated. (17) DVT prophylaxis: Continue warfarin. (18) Do not resuscitate status: Per patient's wishes. (19) Discharge planning issues: Unable to return home due to ongoing back pain, frequent falls, need for skilled care. Case Management following. Insurance authorization for skilled care at [facility] pending. Internal Medicine follow-up with Dr. Hays. CT abdomen worrisome for adenocarcinoma of head of pancreas with metastatic disease. Patient does not wish to undergo further evaluation or treatment. Will likely see rapid decline as disease progresses; consider palliative care / hospice at that time. Total Time Total Time Spent Total Time Spent (In Minutes): 50 Discharge Plan Discharge Items Patient Disposition: Transfer Snf Fac Reason For Visit: FALL, BACK PAIN Discharge Diagnosis: severe back pain falls pancreatic mass Condition: Fair Discharge Goals: Decrease discomfort Activity: As commented below Activity Comment: activity as tolerated with assistance and walker Non-emergency contact: Primary Care Provider and Hospitalist Call non-emergency contact if: you have any medication questions and your symptoms worsen Follow-up/Referrals: Dara Hays DO [Primary Care Provider] - Diet: Heart Healthy Addtl Provider Instructions: fall precautions aspiration precautions Please monitor warfarin therapy per you institution's protocol. Dx: atrial fibrillation INR goal: 2-3 heating pad applied to back PRN Please note that patient has impaired hearing. Hearing best on left. Hearing amplification helps. Prescriptions: New polyethylene glycol 3350 [Miralax] 17 gram Powder In Packet 17 g PO DAILY Qty: 30 RF: 0 sennosides-docusate sodium [Senokot-S] 8.6-50 mg Tablet 2 tab PO BID Qty: 60 RF: 0 acetaminophen [Tylenol Extra Strength] 500 mg Tablet 1,000 mg PO Q8H Qty: 100 RF: 0 lidocaine 5 % Adhesive Patch,Medicated 1 patch transdermal QAM Qty: 3 RF: 0 calcium carbonate [Calcium 500] 500 mg calcium (1,250 mg) tablet 500 mg PO BID Qty: 60 RF: 0 tramadol 50 mg Tablet 50 mg PO Q4H PRN (Reason: pain (scale score 4-6)) Qty: 8 RF: 0 oxycodone 5 mg capsule 5 mg PO BID PRN (Reason: pain (scale score 7-10)) Qty: 4 RF: 0 Continued furosemide 40 mg tablet 40 mg PO DAILY RF: 0 propylthiouracil 50 mg tablet 50 mg PO DAILY RF: 0 atorvastatin 10 mg tablet 10 mg PO DAILY RF: 0 carvedilol 3.125 mg tablet 3.125 mg PO BID RF: 0 warfarin 4 mg tablet 4 mg PO DAILY RF: 0 pantoprazole 20 mg tablet,delayed release (DR/EC) 20 mg PO DAILY RF: 0 magnesium hydroxide [Milk of Magnesia] 400 mg/5 mL Suspension 30 ml PO DAILY PRN (Reason: Constipation) RF: 0 nitroglycerin [Nitrostat] 0.4 mg Tablet, Sublingual 0.4 mg sublingual UD PRN (Reason: Chest Pain) RF: 0 albuterol sulfate [Ventolin HFA] 90 mcg/actuation HFA aerosol inhaler 2 inh inhalation Q4 PRN (Reason: Shortness Of Breath) RF: 0 cholecalciferol (vitamin D3) [Vitamin D3] 5,000 unit Tablet 5,000 unit PO DAILY RF: 0 magnesium oxide 400 mg magnesium Capsule 400 mg PO DAILY RF: 0 Discontinued acetaminophen [Tylenol] 325 mg Tablet 650 mg PO DAILY PRN (Reason: Pain) RF: 0 hydrocodone-acetaminophen 5-325 mg tablet 0.5 tab PO Q6H PRN (Reason: Pain, Severe) RF: 0 alendronate 70 mg tablet 70 mg PO WK RF: 0 Stand-Alone Forms: [facility] Skilled Items Patient informed of condition?: Yes DNR: Yes Discharge Level of Care: Skilled Communicable Disease: No Discharge Prognosis: Stable Admission Data Admit Date/Time: 07/26/18 13:15 Attending Provider: Kermit Hendrix Admit Provider: Aditya Rincon Primary Care Provider: Dara Hays Other Providers: Aditya Rincon ; Lashae Mckeon ; France Mcfadden Service: Telemetry Medical
[2018-07-31] MEDS ORDERED: OXYCODONE HCL IR 5 MG TAB (IMMEDIATE RELEASE) PO STA (13:52)
[2018-07-31] MEDS ORDERED: WARFARIN SOD 4 MG TAB PO SCH (16:00)
[2018-07-31] MEDS ORDERED: DOCUSATE SODIUM/SENNA 50/8.6MG TAB PO SCH (21:00)
== END 2018-07-31 14:46 | DRG 552 ==
LOC: ED 08:40 → SUATTDRO 13:15 → 2N 13:15
DX: R79.1 Abnormal coagulation profile; N18.3 Chronic kidney disease, stage 3 (moderate); R09.02 Hypoxemia; I48.2 Chronic atrial fibrillation; E87.1 Hypo-osmolality and hyponatremia; Z66 Do not resuscitate; I24.8 Other forms of acute ischemic heart disease; W19.XXXA Unspecified fall, initial encounter; K21.9 Gastro-esophageal reflux disease without esophagitis; M54.9 Dorsalgia, unspecified; R13.10 Dysphagia, unspecified; E05.90 Thyrotoxicosis, unspecified without thyrotoxic crisis or storm; E87.8 Other disorders of electrolyte and fluid balance, not elsewhere classified; E11.22 Type 2 diabetes mellitus with diabetic chronic kidney disease; I42.9 Cardiomyopathy, unspecified; Z79.899 Other long term (current) drug therapy; Z95.0 Presence of cardiac pacemaker; Z79.83 Long term (current) use of bisphosphonates; E78.5 Hyperlipidemia, unspecified; Y92.000 Kitchen of unspecified non-institutional (private) residence as the place of occurrence of the external cause; Z86.79 Personal history of other diseases of the circulatory system; C77.2 Secondary and unspecified malignant neoplasm of intra-abdominal lymph nodes; Z88.5 Allergy status to narcotic agent; C25.0 Malignant neoplasm of head of pancreas; K59.00 Constipation, unspecified; I50.22 Chronic systolic (congestive) heart failure; T40.2X5A Adverse effect of other opioids, initial encounter; Y99.8 Other external cause status; R29.6 Repeated falls; M81.0 Age-related osteoporosis without current pathological fracture; Z79.01 Long term (current) use of anticoagulants